=== PATIENT | male | born 1930 | race Caucasian/White ===

== ENCOUNTER → 2016-07-27 | Outpatient (REF) ==
[~2016-07-27] MED LIST: B-121KIT INJ; BRIL90TA PO; COUM1TAB17 PO; DIGO0.12 PO; FURO40TA2 PO; LISI-542 PO; METO-209 PO; NITR4TASL SL; WARF-23 PO
[2016-07-27 11:43] LABS: INR 1.39
== END ==
PROVIDERS: ATTEND Internal Medicine
DX: I48.91 Unspecified atrial fibrillation (principal)

== ENCOUNTER → 2016-07-30 | Outpatient (REF) ==
[2016-07-30 12:38] LABS: MEAN CORPUSCULAR HEMOGLOBIN 31.5 pg (27.0-33.0); MEAN CORPUSCULAR HGB CONC 32.5 g/dl (32.0-36.5); MEAN CORPUSCULAR VOLUME 96.7 fl (80.0-96.0); RED CELL DISTRIBUTION WIDTH 13.2 % (11.5-14.5)
[2016-07-30 13:12] LABS: CREATININE FOR GFR 1.39 MG/DL (0.70-1.30); GLOMERULAR FILTRATION RATE 51.7 (>35); PERCENT SATURATION 10.2 % (19.7-37.4); POTASSIUM SERUM 4.7 MEQ/L (3.5-5.1)
== END ==
PROVIDERS: ATTEND Internal Medicine
DX: D64.9 Anemia, unspecified (principal); I50.9 Heart failure, unspecified; N18.3 Chronic kidney disease, stage 3 (moderate)

== ENCOUNTER → 2016-07-31 | Outpatient (REF) ==
[2016-07-31 11:03] LABS: INR 2.55
--- NOTE | 2016-07-31 16:13 | REP ---
Clinical: Mitral valve repair. Comparison: 05/23/2016. Findings: Cardiomegaly with a dual lead pacemaker and mitral valve repair is evident. Hazy opacification involving the right mid to lower lung zone may reflect layering effusion. Trace basilar atelectasis cannot be excluded. No pneumothorax. Impression: Cardiomegaly. Possible layering right pleural effusion and basilar atelectasis. Signed by Grant Conley MD 07/31/2016 04:04 P
== END ==
PROVIDERS: ATTEND Internal Medicine
DX: I48.91 Unspecified atrial fibrillation (principal); R05 Cough; Z95.2 Presence of prosthetic heart valve

== ENCOUNTER → 2016-08-01 | Outpatient (REF) ==
[2016-08-01 18:46] LABS: MEAN CORPUSCULAR HEMOGLOBIN 31.5 pg (27.0-33.0); MEAN CORPUSCULAR HGB CONC 31.8 g/dl (32.0-36.5); MEAN CORPUSCULAR VOLUME 99.1 fl (80.0-96.0); RED CELL DISTRIBUTION WIDTH 13.1 % (11.5-14.5); WHITE BLOOD COUNT 18.1 K/mm3 (4.0-10.0)
== END ==
PROVIDERS: ATTEND Internal Medicine
DX: D72.829 Elevated white blood cell count, unspecified (principal)

== ENCOUNTER → 2016-08-02 | Outpatient (REF) | PROVIDERS: ATTEND Internal Medicine | DX: I50.9 Heart failure, unspecified (principal); D72.829 Elevated white blood cell count, unspecified ==

== ENCOUNTER → 2016-08-03 | Outpatient (REF) ==
[2016-08-03 13:29] LABS: MEAN CORPUSCULAR HEMOGLOBIN 30.2 pg (27.0-33.0); MEAN CORPUSCULAR HGB CONC 31.4 g/dl (32.0-36.5); MEAN CORPUSCULAR VOLUME 96.1 fl (80.0-96.0); RED CELL DISTRIBUTION WIDTH 12.9 % (11.5-14.5)
[2016-08-03 13:49] LABS: CALCIUM LEVEL 7.8 MG/DL (8.8-10.2); CREATININE FOR GFR 1.47 MG/DL (0.70-1.30); GLOMERULAR FILTRATION RATE 48.5 (>35); POTASSIUM SERUM 4.7 MEQ/L (3.5-5.1)
== END ==
PROVIDERS: ATTEND Internal Medicine
DX: I48.91 Unspecified atrial fibrillation (principal)

== ENCOUNTER → 2016-08-03 | Outpatient (CLI) | payer MEDICARE, OTHER ==
[~2016-08-03] MED LIST changes: +ISOVUE-370 76% 100ML VIAL (Q9967) As Ordered ONE
--- NOTE | 2016-08-03 14:59 | REP ---
CT of the chest with IV contrast: Comparison is a plain film PA and lateral chest dated 07/31/2016. There is a moderate right pleural effusion with compression atelectasis of the adjacent lung. A small volume of pleural fluid tracks into the of the right major fissure superiorly.. There is a nodular density in the right upper lobe measuring 14 mm on image 69 tracking inferiorly to image 74. This may represent lung nodule, atelectasis or scarring. There are no comparison chest CTs. There is a small left pleural effusion. The left lung is otherwise unremarkable. There is a pericardial effusion measuring up to 2.5 cm depth along the posterolateral margin of the heart on the left on image 76. Cardiac size is enlarged. Pacemaker and cardiac valve replacement are noted. The thoracic aorta is unremarkable. In the upper abdomen, the visualized portions of the liver, pancreas and spleen are unremarkable. The adrenals are unremarkable. There is a cyst in the upper pole left kidney. Impression: Moderate right pleural effusion, small left pleural effusion. Pericardial effusion. Cardiac valve replacement. There is compression atelectasis of the right lung adjacent to the effusion. A small volume of right pleural fluid has insinuated into the right major fissure superiorly. There is a right upper lobe lung nodule versus scarring versus atelectasis. Signed by Onur Cui MD 08/03/2016 02:50 P
== END ==
LOC: M RAD 13:30
PROVIDERS: ATTEND Physician Assistant
DX: R91.8 Other nonspecific abnormal finding of lung field (principal); J90 Pleural effusion, not elsewhere classified; I31.3 Pericardial effusion (noninflammatory); Z95.5 Presence of coronary angioplasty implant and graft; Z95.0 Presence of cardiac pacemaker
CPT/HCPCS: 71260; Q9967

== ENCOUNTER → 2016-08-06 | Outpatient (REF) ==
[~2016-08-06] MED LIST changes: -ISOVUE-370 76% 100ML VIAL (Q9967) As Ordered ONE
[2016-08-06 09:54] LABS: MEAN CORPUSCULAR HEMOGLOBIN 30.4 pg (27.0-33.0); MEAN CORPUSCULAR HGB CONC 31.5 g/dl (32.0-36.5); MEAN CORPUSCULAR VOLUME 96.6 fl (80.0-96.0); RED CELL DISTRIBUTION WIDTH 13.2 % (11.5-14.5); WHITE BLOOD COUNT 15.2 K/mm3 (4.0-10.0)
[2016-08-06 10:02] LABS: INR 2.45
[2016-08-06 10:13] LABS: CALCIUM LEVEL 8.8 MG/DL (8.8-10.2); CREATININE FOR GFR 1.36 MG/DL (0.70-1.30); POTASSIUM SERUM 4.8 MEQ/L (3.5-5.1)
== END ==
PROVIDERS: ATTEND Internal Medicine
DX: I48.91 Unspecified atrial fibrillation (principal); N18.3 Chronic kidney disease, stage 3 (moderate); J90 Pleural effusion, not elsewhere classified

== ENCOUNTER → 2016-08-07 | Outpatient (REF) ==
[2016-08-07 09:13] LABS: MEAN CORPUSCULAR HEMOGLOBIN 30.3 pg (27.0-33.0); MEAN CORPUSCULAR VOLUME 94.5 fl (80.0-96.0); RED CELL DISTRIBUTION WIDTH 13.2 % (11.5-14.5); WHITE BLOOD COUNT 15.8 K/mm3 (4.0-10.0)
[2016-08-07 09:17] LABS: CALCIUM LEVEL 8.4 MG/DL (8.8-10.2); CREATININE FOR GFR 1.44 MG/DL (0.70-1.30); GLOMERULAR FILTRATION RATE 49.6 (>35); POTASSIUM SERUM 4.1 MEQ/L (3.5-5.1)
[2016-08-07 09:26] LABS: INR 1.63
--- NOTE | 2016-08-07 14:42 | REP ---
ULTRASOUND-GUIDED RIGHT THORACENTESIS: The procedure was performed under the direct supervision of Dr. Lamas. The risks and benefits of the procedure were explained to the patient, and informed consent was obtained. The right pleural effusion was localized using ultrasound guidance. The skin was prepped and draped in a sterile fashion. 1% lidocaine was used as a local anesthetic. A #8-Colombian multi-sidehole catheter was inserted using trocar technique. 430 mL of low-viscosity, red-colored fluid was withdrawn and sent to the lab. The patient tolerated the procedure well, and there were no immediate complications. After the appropriate amount of monitored convalescence, the patient was discharged from the department. Reviewed by ANDIE Schultz 08/07/2016 04:34 PEdited and Signed by Quique Lamas MD 08/07/2016 05:26 P
--- NOTE | 2016-08-07 15:09 | REP ---
PA AND LATERAL CHEST: 08/07/2016 12:53 PM. Clinical history: Status post right thoracentesis. Comparison: 07/31/2016 chest x-ray, CT chest 08/03/2016. The patient had removal of 430 mL of reddish low viscosity fluid according to the procedure note for the right thoracentesis. I do not see any compelling evidence for pneumothorax. There is trace pleural effusions on both sides. There is cardiomegaly with left atrial and ventricular enlargement. This is unchanged. Some linear atelectatic changes in the right mid and lower lung zone. Hilar contours were symmetric and unchanged. The aorta is calcified at the arch, mildly tortuous without aneurysm. Airway intact. There is a dual lead pacer with leads over the right atrium and right ventricle, unchanged. No compression deformity in the spine with marginal osteophytes mid and lower thoracic region and no disc space narrowing or destructive changes. No free air. Impression: 1. Status post right thoracentesis with less pleural effusion with only small residual remaining and with some residual linear atelectatic change mid and lower lung zone on the right. 2. No evidence of pneumothorax or pneumomediastinum. 3. Dual lead pacer, cardiomegaly with left atrial and ventricular enlargement and a cardiac valve replacement noted. No other significant or acute finding. Signed by Quique Lamas MD 08/07/2016 05:46 P
[2016-08-07 15:13] LABS: RBC PLEURAL FLUID 94 (<10mm3 cells/uL); TNC PLEURAL FLUID 1813 cells/uL (0-20)
[2016-08-07 15:23] LABS: BF DIFF IF INDICATED? YES (NO)
[2016-08-07 15:27] LABS: CC BF DIFF EXAM CYTOCENTRIFUGE
== END ==
PROVIDERS: ATTEND Internal Medicine
DX: N18.3 Chronic kidney disease, stage 3 (moderate) (principal)

== ENCOUNTER → 2016-08-09 | Outpatient (REF) ==
[2016-08-09 14:21] LABS: MEAN CORPUSCULAR HEMOGLOBIN 30.5 pg (27.0-33.0); MEAN CORPUSCULAR HGB CONC 31.6 g/dl (32.0-36.5); MEAN CORPUSCULAR VOLUME 96.3 fl (80.0-96.0); RED CELL DISTRIBUTION WIDTH 13.2 % (11.5-14.5); WHITE BLOOD COUNT 13.7 K/mm3 (4.0-10.0)
[2016-08-09 14:29] LABS: CALCIUM LEVEL 8.3 MG/DL (8.8-10.2); CREATININE FOR GFR 1.51 MG/DL (0.70-1.30); POTASSIUM SERUM 4.5 MEQ/L (3.5-5.1)
== END ==
PROVIDERS: ATTEND Internal Medicine
DX: A49.9 Bacterial infection, unspecified (principal)

== ENCOUNTER → 2016-08-10 | Outpatient (REF) ==
--- NOTE | 2016-08-10 15:54 | REP ---
Clinical: History of right pleural effusion with shortness of breath. Comparison: 08/07/2016. Findings: Stable cardiomegaly is appreciated. Lung keenan demonstrate chronic changes and small stable left pleural effusion. Superimposed right lower lobe infiltrate cannot be excluded. No pneumothorax. Skeletal structures stable. Impression: Chronic changes with small left pleural effusion similar to prior examination. Superimposed acute right lower lobe infiltrate cannot be excluded. Signed by Grant Conley MD 08/10/2016 03:47 P
== END ==
PROVIDERS: ATTEND Internal Medicine
DX: R06.02 Shortness of breath (principal); J90 Pleural effusion, not elsewhere classified

== ENCOUNTER → 2016-08-13 | Outpatient (REF) ==
[2016-08-13 09:52] LABS: MEAN CORPUSCULAR HEMOGLOBIN 30.4 pg (27.0-33.0); MEAN CORPUSCULAR HGB CONC 32.5 g/dl (32.0-36.5); MEAN CORPUSCULAR VOLUME 93.6 fl (80.0-96.0); RED CELL DISTRIBUTION WIDTH 13.2 % (11.5-14.5); WHITE BLOOD COUNT 14.2 K/mm3 (4.0-10.0)
[2016-08-13 09:58] LABS: INR 2.72
[2016-08-13 10:10] LABS: CREATININE FOR GFR 1.41 MG/DL (0.70-1.30); GLOMERULAR FILTRATION RATE 50.9 (>35); POTASSIUM SERUM 3.7 MEQ/L (3.5-5.1)
== END ==
PROVIDERS: ATTEND Internal Medicine
DX: I50.9 Heart failure, unspecified (principal)

== ENCOUNTER → 2016-08-20 | Outpatient (REF) ==
[2016-08-20 10:37] LABS: INR 2.08
== END ==
PROVIDERS: ATTEND Internal Medicine
DX: I48.91 Unspecified atrial fibrillation (principal)

== ENCOUNTER → 2016-08-24 | Outpatient (REF) ==
[2016-08-24 10:11] LABS: INR 1.74
== END ==
PROVIDERS: ATTEND Internal Medicine
DX: I48.91 Unspecified atrial fibrillation (principal)

== ENCOUNTER → 2016-08-28 | Outpatient (REF) ==
[2016-08-28 11:10] LABS: MEAN CORPUSCULAR HEMOGLOBIN 30.6 pg (27.0-33.0); MEAN CORPUSCULAR HGB CONC 32.7 g/dl (32.0-36.5); MEAN CORPUSCULAR VOLUME 93.6 fl (80.0-96.0); RED CELL DISTRIBUTION WIDTH 13.6 % (11.5-14.5)
[2016-08-28 11:21] LABS: PERCENT SATURATION 14.2 % (19.7-37.4)
== END ==
PROVIDERS: ATTEND Internal Medicine
DX: D64.9 Anemia, unspecified (principal)

== ENCOUNTER → 2016-08-31 | Outpatient (REF) ==
[2016-08-31 10:57] LABS: INR 1.69
== END ==
PROVIDERS: ATTEND Internal Medicine
DX: I48.91 Unspecified atrial fibrillation (principal)

== ENCOUNTER → 2016-09-03 | Outpatient (REF) ==
[2016-09-03 12:09] LABS: INR 1.8
== END ==
PROVIDERS: ATTEND Internal Medicine
DX: I48.91 Unspecified atrial fibrillation (principal)

== ENCOUNTER → 2016-09-19 | Outpatient (CLI) | payer MEDICARE, OTHER ==
--- NOTE | 2016-09-19 14:53 | REP ---
CHEST, TWO VIEWS: HISTORY: Heart failure. COMPARISON: 08/10/2016. Patchy density is present in the right lower lobe consistent with atelectasis or infiltrate that is decreased compared to the previous study. Linear densities are present in the right middle lung consistent with atelectasis or scar. The left lung is clear. A small right pleural effusion is present. The cardiac silhouette is enlarged. The pulmonary vasculature is normal in appearance. Degenerative change is present in the thoracic spine. A prosthetic heart valve and cardiac pacemaker are present. IMPRESSION: 1. Right lower lobe atelectasis or infiltrate decreased compared to the previous study. 2. Right mid-lung atelectasis or scar. 3. Small right pleural effusion. 4. Cardiomegaly. Signed by Jason Gomez MD 09/19/2016 03:06 P
== END ==
LOC: M WUC 13:56
PROVIDERS: ATTEND Nurse Practitioner Adult Health
DX: I50.33 Acute on chronic diastolic (congestive) heart failure (principal); R91.8 Other nonspecific abnormal finding of lung field; J90 Pleural effusion, not elsewhere classified; I51.7 Cardiomegaly

== ENCOUNTER → 2016-12-14 | Outpatient (RCR) | payer MEDICARE, OTHER ==
[~2016-12-14] MED LIST changes: +CYAN1000VL; +DOK100TA; +FURO20TA2; -METO-209 PO; +METO-346; +METO1TAB33 PO; +SIMV10TA2; +SPIR25TA2
== END ==
LOC: M CR 11-26 08:25
PROVIDERS: ATTEND Internal Medicine Cardiovascular Disease
DX: Z51.89 Encounter for other specified aftercare (principal); Z95.2 Presence of prosthetic heart valve

== ENCOUNTER 2016-12-21 08:18 | Emergency (ER) | payer MEDICARE, OTHER ==
[~2016-12-21] VITALS: Ht 177.8 cm; Wt 87.9 kg
[~2016-12-21 08:18] MED LIST changes: -CYAN1000VL; -DOK100TA; -FURO20TA2; -METO-346; -SIMV10TA2; -SPIR25TA2
[2016-12-21] MEDS ORDERED: SPIR25TA2 (08:43)
[2016-12-21] MEDS ORDERED: SIMV10TA2 (08:43)
[2016-12-21] MEDS ORDERED: DOK100TA (08:43)
[2016-12-21] MEDS ORDERED: METO-346 (08:43)
[2016-12-21] MEDS ORDERED: FURO20TA2 (08:43)
[2016-12-21] MEDS ORDERED: CYAN1000VL (08:43)
[2016-12-21] MEDS ORDERED: ASPIRIN 81 MG CHEW TABLET PO ONE (08:45)
[2016-12-21 08:53] LABS: BASO % 0.2 % (0.0-1.0); EOS % 3.6 % (0.0-3.0); LARGE UNSTAINED CELL % 3.4 % (0.0-4.0); LYMPH % 17.2 % (24.0-44.0); MEAN CORPUSCULAR HGB CONC 32.7 g/dl (32.0-36.5); MEAN CORPUSCULAR VOLUME 91.8 fl (80.0-96.0); MONO % 6.3 % (0.0-5.0); NEUTROPHILS % 69.3 % (36.0-66.0); PLATELET COUNT, AUTOMATED 290 k/mm3 (150-450); RED CELL DISTRIBUTION WIDTH 14.2 % (11.5-14.5); WHITE BLOOD COUNT 7.2 K/mm3 (4.0-10.0)
[2016-12-21 09:01] LABS: INR 1.82
--- NOTE | 2016-12-21 09:04 | REP ---
Clinical: Chest pain. Technique: Portable semiupright. Comparison: 09/19/2016. Findings: Mediastinum and cardiac silhouette are stable. Evidence for mild cardiomegaly along with pacemaker and valve repair. Lung keenan demonstrate chronic interstitial changes including blunting to the right costophrenic angle. No obvious acute consolidation, effusion, or pneumothorax. Skeletal structures intact. Impression: Chronic stable changes. No acute cardiopulmonary process appreciated. Signed by Grant Conley MD 12/21/2016 08:55 A
[2016-12-21 09:31] LABS: ALBUMIN 3.7 GM/DL (3.2-5.2); ALBUMIN/GLOBULIN RATIO 0.97 (1.00-1.93); ALKALINE PHOSPHATASE 139 U/L (45-117); ALT/SGPT 25 U/L (12-78); ANION GAP 6 MEQ/L (8-16); BILIRUBIN,DIRECT 0.2 MG/DL (0.0-0.2); BILIRUBIN,TOTAL 0.5 MG/DL (0.2-1.0); BLOOD UREA NITROGEN 24 MG/DL (7-18); CALCIUM LEVEL 8.7 MG/DL (8.8-10.2); CARBON DIOXIDE LEVEL 30 MEQ/L (21-32); CHLORIDE LEVEL 105 MEQ/L (98-107); CREATININE FOR GFR 1.31 MG/DL (0.70-1.30); DIGOXIN LEVEL < 0.1 NG/ML (0.5-2.0); GLOMERULAR FILTRATION RATE 55.4 (>35); GLUCOSE, FASTING 88 MG/DL (83-110); POTASSIUM SERUM 3.9 MEQ/L (3.5-5.1); SODIUM LEVEL 141 MEQ/L (136-145); TOTAL PROTEIN 7.5 GM/DL (6.4-8.2)
[2016-12-21 09:34] LABS: AST/SGOT 22 U/L (15-37)
[2016-12-21 11:31] VITALS: BP 142/74
--- NOTE | 2016-12-21 20:55 | ECGEPIP ---
Stationary ECG Study 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
--- NOTE | 2016-12-21 20:58 | ECGEPIP ---
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
== END 2016-12-21 12:58 | disposition home or self-care (01) ==
LOC: M ED 08:18
DX: R07.9 Chest pain, unspecified (principal); G89.18 Other acute postprocedural pain; R94.31 Abnormal electrocardiogram [ECG] [EKG]; I48.91 Unspecified atrial fibrillation; I50.9 Heart failure, unspecified; I25.10 Atherosclerotic heart disease of native coronary artery without angina pectoris; I10 Essential (primary) hypertension; Z95.0 Presence of cardiac pacemaker; Z95.5 Presence of coronary angioplasty implant and graft; Z79.01 Long term (current) use of anticoagulants; Z79.899 Other long term (current) drug therapy; Z88.8 Allergy status to other drugs, medicaments and biological substances

== ENCOUNTER → 2016-12-25 | Outpatient (CLI) | payer MEDICARE, OTHER ==
[~2016-12-25] MED LIST changes: +CYAN1000VL; +DOK100TA; +FURO20TA2; +METO-346; +SIMV10TA2; +SPIR25TA2
--- NOTE | 2016-12-25 15:29 | REP ---
CHEST, TWO VIEWS: HISTORY: Chest pain. COMPARISON: 12/31. A diffuse increase in interstitial markings is present in the lungs consistent with chronic interstitial fibrosis. Patchy density is present in the right lower lobe consistent with atelectasis or infiltrate. The cardiac silhouette is enlarged. The pulmonary vasculature is normal in appearance. Degenerative change is present in the thoracic spine. A cardiac pacemaker is present. IMPRESSION: 1. Chronic interstitial fibrosis. 2. Right lower lobe atelectasis or infiltrate. 3. Cardiomegaly. Signed by Jason Gomez MD 12/25/2016 03:36 P
== END ==
LOC: M WUC 12:53
PROVIDERS: ATTEND Nurse Practitioner Family
DX: R07.9 Chest pain, unspecified (principal)

== ENCOUNTER → 2017-01-14 | Outpatient (RCR) | payer MEDICARE, OTHER | LOC: M CR 12-17 08:41 | PROVIDERS: ATTEND Internal Medicine Cardiovascular Disease | DX: Z51.89 Encounter for other specified aftercare (principal); Z95.2 Presence of prosthetic heart valve ==

== ENCOUNTER 2017-02-13 07:49 | Outpatient (RCR) | payer MEDICARE, OTHER | END 2017-02-14 | LOC: M CR 07:49 | PROVIDERS: ATTEND Internal Medicine Cardiovascular Disease | DX: Z51.89 Encounter for other specified aftercare (principal); Z95.2 Presence of prosthetic heart valve ==

== ENCOUNTER 2017-02-20 13:38 | Outpatient (RCR) | payer MEDICARE, OTHER | END 2017-03-16 | LOC: M CR 13:38 | PROVIDERS: ATTEND Internal Medicine Cardiovascular Disease | DX: Z51.89 Encounter for other specified aftercare (principal); Z95.2 Presence of prosthetic heart valve ==

== ENCOUNTER → 2017-02-22 | Outpatient (REF) | payer MEDICARE, OTHER | LOC: M LAB REF 09:24 | PROVIDERS: ATTEND Physician Assistant | DX: L03.012 Cellulitis of left finger (principal) ==

== ENCOUNTER → 2017-03-23 | Outpatient (REF) | payer MEDICARE, OTHER ==
[2017-03-23 11:59] LABS: INR 2.16
== END ==
LOC: M LABWUC 11:39
PROVIDERS: ATTEND Physician Assistant
DX: R22.41 Localized swelling, mass and lump, right lower limb (principal); Z79.01 Long term (current) use of anticoagulants

== ENCOUNTER 2017-05-27 07:07 | Outpatient (RCR) | payer SELFPAY | END 2017-06-16 | LOC: M CR 07:07 | DX: Z51.89 Encounter for other specified aftercare (principal); I25.10 Atherosclerotic heart disease of native coronary artery without angina pectoris ==

== ENCOUNTER → 2017-06-03 | Outpatient (CLI) | payer MEDICARE, OTHER ==
[2017-06-03 14:05] LABS: BASO % 0.4 % (0.0-1.0); EOS # 0.2 10^3/uL (0.0-0.50); EOS % 2.6 % (0.0-3.0); IMMATURE GRANULOCYTE % 0.3 % (0-0); LYMPH # 1.1 10^3/uL (1.5-4.5); LYMPH % 13.6 % (24.0-44.0); MEAN CORPUSCULAR HEMOGLOBIN 31.1 pg (27.0-33.0); MEAN CORPUSCULAR HGB CONC 31.6 g/dl (32.0-36.5); MEAN CORPUSCULAR VOLUME 98.3 fl (80.0-96.0); MONO # 0.7 10^3/uL (0.0-0.8); MONO % 8.4 % (0.0-5.0); NEUTROPHILS # 5.9 10^3/uL (1.8-7.7); NEUTROPHILS % 74.7 % (36.0-66.0); PLATELET COUNT, AUTOMATED 225 10^3/uL (150-450); RED CELL DISTRIBUTION WIDTH 13.5 % (11.5-14.5)
[2017-06-03 14:26] LABS: ERYTHROCYTE SEDIMENTATION RATE 19 mm/hr (0-30)
== END ==
LOC: M WUC 08:46
PROVIDERS: ATTEND Physician Assistant Surgical
DX: M17.11 Unilateral primary osteoarthritis, right knee (principal); Z79.899 Other long term (current) drug therapy

== ENCOUNTER 2017-08-30 19:09 | Inpatient (IN) | payer MEDICARE, OTHER, SELFPAY ==
[2017-08-30 20:38] LABS: BASO % 0.3 % (0.0-1.0); EOS # 0.2 10^3/uL (0.0-0.50); EOS % 2.2 % (0.0-3.0); HEMATOCRIT 25.5 % (42.0-52.0); HEMOGLOBIN 8.3 g/dl (14.0-18.0); IMMATURE GRANULOCYTE % 0.5 % (0-3.0); LYMPH # 1.1 10^3/uL (1.5-4.5); LYMPH % 14.4 % (24.0-44.0); MEAN CORPUSCULAR HGB CONC 32.5 g/dl (32.0-36.5); MEAN CORPUSCULAR VOLUME 95.1 fl (80.0-96.0); MONO # 0.8 10^3/uL (0.0-0.8); NEUTROPHILS # 5.4 10^3/uL (1.8-7.7); NEUTROPHILS % 71.6 % (36.0-66.0); PLATELET COUNT, AUTOMATED 260 10^3/uL (150-450); RED BLOOD COUNT 2.68 10^6/uL (4.30-6.10); RED CELL DISTRIBUTION WIDTH 14.8 % (11.5-14.5); WHITE BLOOD COUNT 7.6 10^3/uL (4.0-10.0)
[2017-08-30 20:47] LABS: INR 1.18; PROTHROMBIN TIME 15.2 SECONDS (12.4-14.5)
[2017-08-30 20:48] LABS: PARTIAL THROMBOPLASTIN TIME 35.2 SECONDS (26.8-37.9)
[2017-08-30] MEDS: FUROSEMIDE 100 MG/10 ML VIAL (J1940) IV (20:59)
[2017-08-30 21:11] LABS: ANION GAP 9 MEQ/L (8-16); BLOOD UREA NITROGEN 34 MG/DL (7-18); CALCIUM LEVEL 7.9 MG/DL (8.8-10.2); CARBON DIOXIDE LEVEL 24 MEQ/L (21-32); CHLORIDE LEVEL 106 MEQ/L (98-107); CK-MB VALUE MASS 1.8 NG/ML (0.0-3.6); CPK CREATINE PHOSPHOKINASE 51 U/L (39-308); CREATININE FOR GFR 1.53 MG/DL (0.70-1.30); GLOMERULAR FILTRATION RATE 46.2 (>35); GLUCOSE, FASTING 102 MG/DL (70-100); MB/CK RELATIVE INDEX 3.52 (< OR =4); NT-PRO BNP 1931 PG/ML (<450); POTASSIUM SERUM 4.7 MEQ/L (3.5-5.1); SODIUM LEVEL 139 MEQ/L (136-145); TROPONIN I < 0.02 NG/ML (< 0.10)
[2017-08-30 22:22] LABS: ABG BASE EXCESS -2.5 (-2.0-2.0); ABG HCO3 20.5 MEQ/L (22.0-26.0); ABG O2 SATURATION 99.3 % (95.0-99.0); ABG PARTIAL PRESSURE CO2 28.7 mmHg (35.0-45.0); ABG PARTIAL PRESSURE O2 148.7 mmHg (75.0-100.0); ABG STANDARD HCO3 22.4 MEQ/L (22.0-26.0); ABG TOTAL CO2 21.3 MEQ/L (23.0-31.0); ABG pH (ARTERIAL) 7.471 UNITS (7.350-7.450)
[2017-08-30] MEDS ORDERED: ISOVUE-370 76% 100ML VIAL (Q9967) As Ordered (23:26)
[2017-08-31] MEDS ORDERED: NITROGLYCERIN 0.4 MG SUBL TABLET SL (00:15)
[2017-08-31] MEDS ORDERED: IPRATROPIUM 0.5MG/ALBUTEROL 2.5MG INH SOL UD 3ML (DUONEB)(J7620) NEB (00:15)
[2017-08-31] MEDS: IPRATROPIUM 0.5MG/ALBUTEROL 2.5MG INH SOL UD 3ML (DUONEB)(J7620) NEB ×4 (01:15→20:00)
[2017-08-31 01:25] LABS: CK-MB VALUE MASS 1.9 NG/ML (0.0-3.6); CPK CREATINE PHOSPHOKINASE 44 U/L (39-308); MB/CK RELATIVE INDEX 4.31 (< OR =4); TROPONIN I < 0.02 NG/ML (< 0.10)
[2017-08-31] MEDS: CEFTRIAXONE SOD 2 GM in APPROPRIATE DILUENT 1 EA IV (01:47)
[2017-08-31] MEDS: NS 1,000 ML IV (02:03)
[2017-08-31] MEDS: AZITHROMYCIN INJ 500 MG, VIAL MATE ADAPTER 1 EACH in D5W 250 ML IV (02:40)
[2017-08-31 04:07] LABS: INFLUENZA A AMPLIFICATION NEGATIVE (NEGATIVE); INFLUENZA B AMPLIFICATION NEGATIVE (NEGATIVE)
[2017-08-31] MEDS ORDERED: HEPARIN SOD (PORCINE) 5000 UNITS/ML VIAL SC (06:00)
[2017-08-31 06:15] LABS: HEMATOCRIT 23.3 % (42.0-52.0); HEMOGLOBIN 7.7 g/dl (14.0-18.0); MEAN CORPUSCULAR HEMOGLOBIN 30.9 pg (27.0-33.0); MEAN CORPUSCULAR VOLUME 93.6 fl (80.0-96.0); PLATELET COUNT, AUTOMATED 234 10^3/uL (150-450); RED BLOOD COUNT 2.49 10^6/uL (4.30-6.10); RED CELL DISTRIBUTION WIDTH 14.7 % (11.5-14.5); WHITE BLOOD COUNT 7.5 10^3/uL (4.0-10.0)
[2017-08-31 06:44] LABS: ANION GAP 11 MEQ/L (8-16); BLOOD UREA NITROGEN 33 MG/DL (7-18); CALCIUM LEVEL 7.7 MG/DL (8.8-10.2); CARBON DIOXIDE LEVEL 24 MEQ/L (21-32); CHLORIDE LEVEL 106 MEQ/L (98-107); CPK CREATINE PHOSPHOKINASE 38 U/L (39-308); GLOMERULAR FILTRATION RATE 47.2 (>35); GLUCOSE, FASTING 89 MG/DL (70-100); IRON (FE) 14 UG/DL (65-175); PERCENT SATURATION 3.9 % (19.7-50.0); POTASSIUM SERUM 3.6 MEQ/L (3.5-5.1); SODIUM LEVEL 141 MEQ/L (136-145); TOTAL IRON BINDING CAPACITY 360 UG/DL (250-450); TROPONIN I 0.02 NG/ML (< 0.10)
[2017-08-31 06:45] LABS: CK-MB VALUE MASS 1.5 NG/ML (0.0-3.6); MB/CK RELATIVE INDEX 3.94 (< OR =4)
[2017-08-31] MEDS: SUCRALFATE 1 GM TAB PO ×4 (08:28→20:37)
[2017-08-31] MEDS: SIMVASTATIN 10 MG TAB PO (09:38)
[2017-08-31] MEDS: FOLIC ACID 1 MG TAB PO (09:38)
[2017-08-31] MEDS: TICAGRELOR 90 MG TABLET (BRILINTA) PO ×2 (09:38→20:37)
[2017-08-31] MEDS: PANTOPRAZOLE 40MG TAB (PROTONIX) PO (09:39)
[2017-08-31] MEDS: HEPARIN SOD (PORCINE) 5000 UNITS/ML VIAL SQ ×2 (09:39→20:38)
[2017-08-31] MEDS: METOPROLOL TART 12.5 MG PER 1/2 TAB PO ×2 (09:39→20:37)
[2017-08-31 12:41] LABS: BASO % 0.3 % (0.0-1.0); EOS # 0.1 10^3/uL (0.0-0.50); EOS % 0.8 % (0.0-3.0); HEMATOCRIT 24.9 % (42.0-52.0); IMMATURE GRANULOCYTE % 0.4 % (0-3.0); LYMPH # 0.9 10^3/uL (1.5-4.5); LYMPH % 11.1 % (24.0-44.0); MEAN CORPUSCULAR HEMOGLOBIN 30.7 pg (27.0-33.0); MEAN CORPUSCULAR HGB CONC 32.1 g/dl (32.0-36.5); MEAN CORPUSCULAR VOLUME 95.4 fl (80.0-96.0); MONO # 0.9 10^3/uL (0.0-0.8); MONO % 11.1 % (0.0-5.0); NEUTROPHILS # 5.9 10^3/uL (1.8-7.7); NEUTROPHILS % 76.3 % (36.0-66.0); PLATELET COUNT, AUTOMATED 236 10^3/uL (150-450); RED BLOOD COUNT 2.61 10^6/uL (4.30-6.10); WHITE BLOOD COUNT 7.8 10^3/uL (4.0-10.0)
[2017-08-31] MEDS: PANTOPRAZOLE 20 MG TAB PO (13:50)
[2017-08-31 15:39] LABS: FERRITIN 48 NG/ML (26-388)
[2017-08-31 16:38] LABS: IMMEDIATE SPIN CROSSMATCH 1 2
[2017-08-31] MEDS: FAMOTIDINE 20 MG TAB PO (17:52)
[2017-08-31 21:23] LABS: HEMATOCRIT 25.4 % (42.0-52.0); HEMOGLOBIN 8.2 g/dl (14.0-18.0); MEAN CORPUSCULAR HEMOGLOBIN 29.7 pg (27.0-33.0); MEAN CORPUSCULAR HGB CONC 32.3 g/dl (32.0-36.5); PLATELET COUNT, AUTOMATED 241 10^3/uL (150-450); RED BLOOD COUNT 2.76 10^6/uL (4.30-6.10); RED CELL DISTRIBUTION WIDTH 15.6 % (11.5-14.5); WHITE BLOOD COUNT 7.7 10^3/uL (4.0-10.0)
[2017-09-01] MEDS: CEFTRIAXONE SOD 2 GM in APPROPRIATE DILUENT 1 EA IV (00:21)
[2017-09-01] MEDS: AZITHROMYCIN INJ 500 MG, VIAL MATE ADAPTER 1 EACH in D5W 250 ML IV (01:07)
[2017-09-01] MEDS: IPRATROPIUM 0.5MG/ALBUTEROL 2.5MG INH SOL UD 3ML (DUONEB)(J7620) NEB ×4 (02:00→19:45)
[2017-09-01 04:57] LABS: HEMOGLOBIN 8.8 g/dl (14.0-18.0); MEAN CORPUSCULAR HEMOGLOBIN 30.4 pg (27.0-33.0); MEAN CORPUSCULAR HGB CONC 32.6 g/dl (32.0-36.5); MEAN CORPUSCULAR VOLUME 93.4 fl (80.0-96.0); PLATELET COUNT, AUTOMATED 255 10^3/uL (150-450); RED BLOOD COUNT 2.89 10^6/uL (4.30-6.10); RED CELL DISTRIBUTION WIDTH 15.8 % (11.5-14.5); WHITE BLOOD COUNT 8.4 10^3/uL (4.0-10.0)
[2017-09-01 05:10] LABS: INR 1.26; PROTHROMBIN TIME 16.1 SECONDS (12.4-14.5)
[2017-09-01 05:11] LABS: ANION GAP 9 MEQ/L (8-16); BLOOD UREA NITROGEN 30 MG/DL (7-18); CALCIUM LEVEL 8.1 MG/DL (8.8-10.2); CARBON DIOXIDE LEVEL 25 MEQ/L (21-32); CHLORIDE LEVEL 108 MEQ/L (98-107); CREATININE FOR GFR 1.55 MG/DL (0.70-1.30); GLOMERULAR FILTRATION RATE 45.5 (>35); GLUCOSE, FASTING 92 MG/DL (70-100); POTASSIUM SERUM 3.7 MEQ/L (3.5-5.1); SODIUM LEVEL 142 MEQ/L (136-145)
[2017-09-01] MEDS: HEPARIN SOD (PORCINE) 5000 UNITS/ML VIAL SQ ×2 (08:53→08:59)
[2017-09-01] MEDS: SUCRALFATE 1 GM TAB PO ×5 (08:54→20:43)
[2017-09-01] MEDS: PANTOPRAZOLE 20 MG TAB PO (08:55)
[2017-09-01] MEDS: SIMVASTATIN 10 MG TAB PO (08:55)
[2017-09-01] MEDS: FOLIC ACID 1 MG TAB PO (08:55)
[2017-09-01] MEDS: METOPROLOL TART 12.5 MG PER 1/2 TAB PO ×2 (08:55→20:32)
[2017-09-01] MEDS: TICAGRELOR 90 MG TABLET (BRILINTA) PO ×2 (08:55→20:32)
[2017-09-01 10:14] LABS: MAGNESIUM LEVEL 2.7 MG/DL (1.8-2.4)
[2017-09-01] MEDS: ACETAMINOPHEN TAB 650MG DOSE (2X325MG) PO (14:39)
[2017-09-01] MEDS ORDERED: FUROSEMIDE 100 MG/10 ML VIAL (J1940) IV (15:00)
[2017-09-01] MEDS: FUROSEMIDE 20 MG/2 ML VIAL (J1940) IV (15:27)
[2017-09-01] MEDS: FAMOTIDINE 20 MG TAB PO (17:51)
[2017-09-01] MEDS: FUROSEMIDE 40 MG/4 ML VIAL (J1940) IV (17:51)
[2017-09-01 21:55] LABS: ANION GAP 11 MEQ/L (8-16); BLOOD UREA NITROGEN 30 MG/DL (7-18); CALCIUM LEVEL 7.8 MG/DL (8.8-10.2); CARBON DIOXIDE LEVEL 23 MEQ/L (21-32); CHLORIDE LEVEL 108 MEQ/L (98-107); CREATININE FOR GFR 1.63 MG/DL (0.70-1.30); GLOMERULAR FILTRATION RATE 42.9 (>35); GLUCOSE, FASTING 122 MG/DL (70-100); MAGNESIUM LEVEL 2.4 MG/DL (1.8-2.4); POTASSIUM SERUM 3.4 MEQ/L (3.5-5.1); SODIUM LEVEL 142 MEQ/L (136-145)
[2017-09-02] MEDS: CEFTRIAXONE SOD 2 GM in APPROPRIATE DILUENT 1 EA IV (00:05)
[2017-09-02] MEDS: POTASSIUM CHLORIDE 10 MEQ SR TABLET PO (00:06)
[2017-09-02] MEDS: AZITHROMYCIN INJ 500 MG, VIAL MATE ADAPTER 1 EACH in D5W 250 ML IV (01:06)
[2017-09-02 05:48] LABS: HEMATOCRIT 27.5 % (42.0-52.0); HEMOGLOBIN 8.9 g/dl (14.0-18.0); MEAN CORPUSCULAR HEMOGLOBIN 30.2 pg (27.0-33.0); MEAN CORPUSCULAR HGB CONC 32.4 g/dl (32.0-36.5); MEAN CORPUSCULAR VOLUME 93.2 fl (80.0-96.0); PLATELET COUNT, AUTOMATED 235 10^3/uL (150-450); RED BLOOD COUNT 2.95 10^6/uL (4.30-6.10); RED CELL DISTRIBUTION WIDTH 15.6 % (11.5-14.5); WHITE BLOOD COUNT 7.6 10^3/uL (4.0-10.0)
[2017-09-02 06:02] LABS: INR 1.23; PROTHROMBIN TIME 15.7 SECONDS (12.4-14.5)
[2017-09-02 06:17] LABS: ANION GAP 8 MEQ/L (8-16); BLOOD UREA NITROGEN 28 MG/DL (7-18); CARBON DIOXIDE LEVEL 25 MEQ/L (21-32); CHLORIDE LEVEL 108 MEQ/L (98-107); CREATININE FOR GFR 1.52 MG/DL (0.70-1.30); GLOMERULAR FILTRATION RATE 46.5 (>35); GLUCOSE, FASTING 90 MG/DL (70-100); POTASSIUM SERUM 3.9 MEQ/L (3.5-5.1); SODIUM LEVEL 141 MEQ/L (136-145)
[2017-09-02] MEDS: IPRATROPIUM 0.5MG/ALBUTEROL 2.5MG INH SOL UD 3ML (DUONEB)(J7620) NEB ×3 (07:16→19:59)
[2017-09-02] MEDS: SUCRALFATE 1 GM TAB PO ×4 (08:36→21:42)
[2017-09-02] MEDS: SIMVASTATIN 10 MG TAB PO (08:37)
[2017-09-02] MEDS: METOPROLOL TART 12.5 MG PER 1/2 TAB PO ×2 (08:37→21:42)
[2017-09-02] MEDS: PANTOPRAZOLE 20 MG TAB PO (08:37)
[2017-09-02] MEDS: FOLIC ACID 1 MG TAB PO (08:37)
[2017-09-02] MEDS: TICAGRELOR 90 MG TABLET (BRILINTA) PO ×2 (08:37→21:42)
[2017-09-02 10:06] LABS: ALBUMIN 3.2 GM/DL (3.2-5.2); ALBUMIN/GLOBULIN RATIO 1.14 (1.00-1.93); ALKALINE PHOSPHATASE 126 U/L (45-117); ALT/SGPT 20 U/L (12-78); AST/SGOT 13 U/L (7-37); BILIRUBIN,DIRECT 0.2 MG/DL (0.0-0.2); BILIRUBIN,TOTAL 0.6 MG/DL (0.2-1.0)
[2017-09-02 10:18] LABS: VITAMIN B12 LEVEL 802 PG/ML (247-911)
[2017-09-02 12:11] LABS: HEMATOCRIT 29.6 % (42.0-52.0); HEMOGLOBIN 9.7 g/dl (14.0-18.0)
[2017-09-02 14:54] LABS: MAGNESIUM LEVEL 2.6 MG/DL (1.8-2.4)
[2017-09-02] MEDS: FAMOTIDINE 20 MG TAB PO (17:12)
[2017-09-02] MEDS: LevoFLOXacin 750 MG TABLET PO (17:12)
[2017-09-02 18:25] LABS: HEMATOCRIT 29.8 % (42.0-52.0); HEMOGLOBIN 9.5 g/dl (14.0-18.0)
[2017-09-02] MEDS: PANTOPRAZOLE 40MG INJ (PROTONIX) (C9113) IV (21:42)
[2017-09-03 00:43] LABS: HEMATOCRIT 26.7 % (42.0-52.0); HEMOGLOBIN 8.7 g/dl (14.0-18.0)
[2017-09-03] MEDS: IPRATROPIUM 0.5MG/ALBUTEROL 2.5MG INH SOL UD 3ML (DUONEB)(J7620) NEB ×4 (01:41→19:35)
[2017-09-03 06:09] LABS: HEMATOCRIT 27.2 % (42.0-52.0); HEMOGLOBIN 8.8 g/dl (14.0-18.0); MEAN CORPUSCULAR HEMOGLOBIN 29.9 pg (27.0-33.0); MEAN CORPUSCULAR HGB CONC 32.4 g/dl (32.0-36.5); MEAN CORPUSCULAR VOLUME 92.5 fl (80.0-96.0); PLATELET COUNT, AUTOMATED 229 10^3/uL (150-450); RED BLOOD COUNT 2.94 10^6/uL (4.30-6.10); RED CELL DISTRIBUTION WIDTH 15.4 % (11.5-14.5); WHITE BLOOD COUNT 7.5 10^3/uL (4.0-10.0)
[2017-09-03 06:20] LABS: INR 1.32; PROTHROMBIN TIME 16.7 SECONDS (12.4-14.5)
[2017-09-03 06:32] LABS: ANION GAP 7 MEQ/L (8-16); BLOOD UREA NITROGEN 24 MG/DL (7-18); CALCIUM LEVEL 7.8 MG/DL (8.8-10.2); CARBON DIOXIDE LEVEL 26 MEQ/L (21-32); CHLORIDE LEVEL 110 MEQ/L (98-107); CREATININE FOR GFR 1.53 MG/DL (0.70-1.30); GLOMERULAR FILTRATION RATE 46.2 (>35); GLUCOSE, FASTING 87 MG/DL (70-100); POTASSIUM SERUM 3.8 MEQ/L (3.5-5.1); SODIUM LEVEL 143 MEQ/L (136-145)
[2017-09-03] MEDS: SIMVASTATIN 10 MG TAB PO (08:58)
[2017-09-03] MEDS: SUCRALFATE 1 GM TAB PO ×4 (08:58→20:54)
[2017-09-03] MEDS: METOPROLOL TART 12.5 MG PER 1/2 TAB PO ×2 (08:59→20:53)
[2017-09-03] MEDS: FOLIC ACID 1 MG TAB PO (08:59)
[2017-09-03] MEDS: TICAGRELOR 90 MG TABLET (BRILINTA) PO ×2 (08:59→20:54)
[2017-09-03] MEDS: PANTOPRAZOLE 40MG INJ (PROTONIX) (C9113) IV ×2 (09:00→20:54)
[2017-09-03] MEDS: FAMOTIDINE 20 MG TAB PO (17:07)
[2017-09-04] MEDS: IPRATROPIUM 0.5MG/ALBUTEROL 2.5MG INH SOL UD 3ML (DUONEB)(J7620) NEB ×4 (01:13→20:08)
[2017-09-04] MEDS: LevoFLOXacin 750 MG TABLET PO (06:00)
[2017-09-04 06:20] LABS: HEMATOCRIT 28.9 % (42.0-52.0); HEMOGLOBIN 9.3 g/dl (14.0-18.0); MEAN CORPUSCULAR HEMOGLOBIN 29.8 pg (27.0-33.0); MEAN CORPUSCULAR HGB CONC 32.2 g/dl (32.0-36.5); MEAN CORPUSCULAR VOLUME 92.6 fl (80.0-96.0); PLATELET COUNT, AUTOMATED 233 10^3/uL (150-450); RED BLOOD COUNT 3.12 10^6/uL (4.30-6.10); RED CELL DISTRIBUTION WIDTH 15.7 % (11.5-14.5); WHITE BLOOD COUNT 7.5 10^3/uL (4.0-10.0)
[2017-09-04 06:30] LABS: INR 1.23; PROTHROMBIN TIME 15.7 SECONDS (12.4-14.5)
[2017-09-04 06:31] LABS: ANION GAP 8 MEQ/L (8-16); BLOOD UREA NITROGEN 25 MG/DL (7-18); CALCIUM LEVEL 8.3 MG/DL (8.8-10.2); CARBON DIOXIDE LEVEL 24 MEQ/L (21-32); CHLORIDE LEVEL 111 MEQ/L (98-107); CREATININE FOR GFR 1.48 MG/DL (0.70-1.30); GLUCOSE, FASTING 88 MG/DL (70-100); SODIUM LEVEL 143 MEQ/L (136-145)
[2017-09-04] MEDS: SUCRALFATE 1 GM TAB PO ×4 (08:37→21:40)
[2017-09-04] MEDS: FOLIC ACID 1 MG TAB PO (08:38)
[2017-09-04] MEDS: TICAGRELOR 90 MG TABLET (BRILINTA) PO (08:38)
[2017-09-04] MEDS: PANTOPRAZOLE 40MG INJ (PROTONIX) (C9113) IV ×2 (08:38→21:40)
[2017-09-04] MEDS: SIMVASTATIN 10 MG TAB PO (08:38)
[2017-09-04] MEDS: METOPROLOL TART 12.5 MG PER 1/2 TAB PO ×2 (08:38→21:41)
[2017-09-04] MEDS: FAMOTIDINE 20 MG TAB PO (17:42)
[2017-09-05] MEDS: IPRATROPIUM 0.5MG/ALBUTEROL 2.5MG INH SOL UD 3ML (DUONEB)(J7620) NEB ×4 (02:00→20:00)
[2017-09-05] MEDS: ONDANSETRON 4MG/2ML VIAL (J2405) IV (05:52)
[2017-09-05 06:27] LABS: HEMATOCRIT 31.5 % (42.0-52.0); HEMOGLOBIN 9.9 g/dl (14.0-18.0); MEAN CORPUSCULAR HEMOGLOBIN 29.6 pg (27.0-33.0); MEAN CORPUSCULAR HGB CONC 31.4 g/dl (32.0-36.5); MEAN CORPUSCULAR VOLUME 94.3 fl (80.0-96.0); PLATELET COUNT, AUTOMATED 277 10^3/uL (150-450); RED BLOOD COUNT 3.34 10^6/uL (4.30-6.10); RED CELL DISTRIBUTION WIDTH 15.4 % (11.5-14.5); WHITE BLOOD COUNT 9.8 10^3/uL (4.0-10.0)
[2017-09-05 06:49] LABS: ANION GAP 7 MEQ/L (8-16); BLOOD UREA NITROGEN 23 MG/DL (7-18); CALCIUM LEVEL 8.5 MG/DL (8.8-10.2); CARBON DIOXIDE LEVEL 25 MEQ/L (21-32); CHLORIDE LEVEL 109 MEQ/L (98-107); CREATININE FOR GFR 1.56 MG/DL (0.70-1.30); GLOMERULAR FILTRATION RATE 45.1 (>35); GLUCOSE, FASTING 103 MG/DL (70-100); POTASSIUM SERUM 4.4 MEQ/L (3.5-5.1); SODIUM LEVEL 141 MEQ/L (136-145)
[2017-09-05 06:55] LABS: INR 1.25
[2017-09-05] MEDS: SUCRALFATE 1 GM TAB PO ×4 (07:58→20:12)
[2017-09-05] MEDS: SIMVASTATIN 10 MG TAB PO (07:59)
[2017-09-05] MEDS: PANTOPRAZOLE 40MG INJ (PROTONIX) (C9113) IV ×2 (07:59→20:11)
[2017-09-05] MEDS: FOLIC ACID 1 MG TAB PO (07:59)
[2017-09-05] MEDS: METOPROLOL TART 12.5 MG PER 1/2 TAB PO ×2 (07:59→20:12)
[2017-09-05 12:18] LABS: LACTIC ACID SEPSIS PROTOCOL 1.9 MMOL/L (0.4-2.0)
[2017-09-05] MEDS: LORazepam 0.5 MG TAB PO (17:10)
[2017-09-05] MEDS: FAMOTIDINE 20 MG TAB PO (17:10)
[2017-09-06] MEDS: IPRATROPIUM 0.5MG/ALBUTEROL 2.5MG INH SOL UD 3ML (DUONEB)(J7620) NEB ×4 (02:00→20:16)
[2017-09-06 06:28] LABS: HEMATOCRIT 32.6 % (42.0-52.0); HEMOGLOBIN 10.1 g/dl (14.0-18.0); MEAN CORPUSCULAR HEMOGLOBIN 29.2 pg (27.0-33.0); MEAN CORPUSCULAR VOLUME 94.2 fl (80.0-96.0); PLATELET COUNT, AUTOMATED 255 10^3/uL (150-450); RED BLOOD COUNT 3.46 10^6/uL (4.30-6.10); RED CELL DISTRIBUTION WIDTH 15.5 % (11.5-14.5); WHITE BLOOD COUNT 7.8 10^3/uL (4.0-10.0)
[2017-09-06 06:37] LABS: PROTHROMBIN TIME 15.5 SECONDS (12.4-14.5)
[2017-09-06 06:45] LABS: LACTIC ACID SEPSIS PROTOCOL 1.7 MMOL/L (0.4-2.0)
[2017-09-06 06:55] LABS: ALBUMIN 3.4 GM/DL (3.2-5.2); ALBUMIN/GLOBULIN RATIO 1.03 (1.00-1.93); ALKALINE PHOSPHATASE 146 U/L (45-117); ALT/SGPT 22 U/L (12-78); AMYLASE 42 U/L (25-115); ANION GAP 9 MEQ/L (8-16); AST/SGOT 14 U/L (7-37); BLOOD UREA NITROGEN 22 MG/DL (7-18); CALCIUM LEVEL 8.5 MG/DL (8.8-10.2); CARBON DIOXIDE LEVEL 23 MEQ/L (21-32); CHLORIDE LEVEL 111 MEQ/L (98-107); CREATININE FOR GFR 1.54 MG/DL (0.70-1.30); GLOMERULAR FILTRATION RATE 45.8 (>35); GLUCOSE, FASTING 98 MG/DL (70-100); LIPASE 72 U/L (73-393); POTASSIUM SERUM 4.4 MEQ/L (3.5-5.1); SODIUM LEVEL 143 MEQ/L (136-145); TOTAL PROTEIN 6.7 GM/DL (6.4-8.2)
[2017-09-06] MEDS: SUCRALFATE 1 GM TAB PO ×4 (07:30→20:03)
[2017-09-06] MEDS: METOPROLOL TART 12.5 MG PER 1/2 TAB PO ×2 (09:00→20:04)
[2017-09-06] MEDS: SIMVASTATIN 10 MG TAB PO (09:00)
[2017-09-06] MEDS: FOLIC ACID 1 MG TAB PO (09:00)
[2017-09-06] MEDS: PANTOPRAZOLE 40MG INJ (PROTONIX) (C9113) IV (10:26)
[2017-09-06] MEDS ORDERED: ePHEDrine SULFATE 25 MG/5 ML(5MG/ML) SYRINGE As Ordered (13:09)
[2017-09-06] MEDS ORDERED: PHENYLephrine HCL 500 MCG/5 ML (100MCG/ML) SYRINGE (J2370) As Ordered (13:09)
[2017-09-06] MEDS ORDERED: PROPOFOL 200 MG/20 ML VIAL As Ordered ×2 (13:27)
[2017-09-06] MEDS ORDERED: LIDOCAINE 2% INJ 100 MG/5 ML SDV (FOR ANES.) As Ordered (13:27)
[2017-09-06] MEDS ORDERED: ONDANSETRON 4MG/2ML VIAL (J2405) IV (13:45)
[2017-09-06] MEDS ORDERED: fentaNYL 100 MCG/2 ML INJECTION (J3010) IV (13:45)
[2017-09-06] MEDS: LR 1,000 ML IV (13:45)
[2017-09-06] MEDS: ACETAMINOPHEN TAB 650MG DOSE (2X325MG) PO (15:09)
[2017-09-06] MEDS: FAMOTIDINE 20 MG TAB PO (17:42)
[2017-09-07 00:07] LABS: BODY FLUID CULTURE Not Indicated (.); LEGIONELLA ANTIGEN URINE Negative (Negative); ORGANISM ID Not indicated. (.); SPECIMEN SOURCE Urine (.); URINE STREP PNEUMONIAE ANTIGEN Negative (Negative)
[2017-09-07] MEDS: IPRATROPIUM 0.5MG/ALBUTEROL 2.5MG INH SOL UD 3ML (DUONEB)(J7620) NEB ×4 (02:00→20:00)
[2017-09-07 05:24] LABS: HEMATOCRIT 29.7 % (42.0-52.0); HEMOGLOBIN 9.4 g/dl (14.0-18.0); MEAN CORPUSCULAR HEMOGLOBIN 29.7 pg (27.0-33.0); MEAN CORPUSCULAR HGB CONC 31.6 g/dl (32.0-36.5); MEAN CORPUSCULAR VOLUME 93.7 fl (80.0-96.0); PLATELET COUNT, AUTOMATED 202 10^3/uL (150-450); RED BLOOD COUNT 3.17 10^6/uL (4.30-6.10); RED CELL DISTRIBUTION WIDTH 15.4 % (11.5-14.5); WHITE BLOOD COUNT 6.9 10^3/uL (4.0-10.0)
[2017-09-07 05:33] LABS: INR 1.35; PROTHROMBIN TIME 16.9 SECONDS (12.4-14.5)
[2017-09-07 05:50] LABS: ANION GAP 6 MEQ/L (8-16); BLOOD UREA NITROGEN 28 MG/DL (7-18); CALCIUM LEVEL 8.2 MG/DL (8.8-10.2); CARBON DIOXIDE LEVEL 23 MEQ/L (21-32); CHLORIDE LEVEL 112 MEQ/L (98-107); CREATININE FOR GFR 1.56 MG/DL (0.70-1.30); GLOMERULAR FILTRATION RATE 45.1 (>35); GLUCOSE, FASTING 93 MG/DL (70-100); POTASSIUM SERUM 4.1 MEQ/L (3.5-5.1); SODIUM LEVEL 141 MEQ/L (136-145)
[2017-09-07] MEDS: SUCRALFATE 1 GM TAB PO ×4 (08:01→20:11)
[2017-09-07] MEDS: METOPROLOL TART 12.5 MG PER 1/2 TAB PO ×2 (09:00→20:12)
[2017-09-07] MEDS: SIMVASTATIN 10 MG TAB PO (10:00)
[2017-09-07] MEDS: TICAGRELOR 90 MG TABLET (BRILINTA) PO ×2 (10:00→20:11)
[2017-09-07] MEDS: PANTOPRAZOLE 40MG TAB (PROTONIX) PO (10:00)
[2017-09-07] MEDS: FOLIC ACID 1 MG TAB PO (10:01)
[2017-09-07] MEDS: ACETAMINOPHEN TAB 650MG DOSE (2X325MG) PO (13:41)
[2017-09-07] MEDS: WARFARIN SOD 5 MG TAB PO (17:21)
[2017-09-07] MEDS: FAMOTIDINE 20 MG TAB PO (18:27)
[2017-09-08] MEDS: IPRATROPIUM 0.5MG/ALBUTEROL 2.5MG INH SOL UD 3ML (DUONEB)(J7620) NEB ×4 (02:00→20:28)
[2017-09-08] MEDS: SIMVASTATIN 10 MG TAB PO (07:55)
[2017-09-08] MEDS: PANTOPRAZOLE 40MG TAB (PROTONIX) PO (07:55)
[2017-09-08] MEDS: TICAGRELOR 90 MG TABLET (BRILINTA) PO ×2 (07:55→21:03)
[2017-09-08] MEDS: FOLIC ACID 1 MG TAB PO (07:55)
[2017-09-08] MEDS: SUCRALFATE 1 GM TAB PO ×4 (07:55→21:03)
[2017-09-08] MEDS: METOPROLOL TART 12.5 MG PER 1/2 TAB PO ×2 (07:56→21:00)
[2017-09-08 08:35] LABS: HEMATOCRIT 30.4 % (42.0-52.0); HEMOGLOBIN 9.5 g/dl (14.0-18.0); MEAN CORPUSCULAR HEMOGLOBIN 29.5 pg (27.0-33.0); MEAN CORPUSCULAR HGB CONC 31.3 g/dl (32.0-36.5); MEAN CORPUSCULAR VOLUME 94.4 fl (80.0-96.0); PLATELET COUNT, AUTOMATED 208 10^3/uL (150-450); RED BLOOD COUNT 3.22 10^6/uL (4.30-6.10); RED CELL DISTRIBUTION WIDTH 15.3 % (11.5-14.5); WHITE BLOOD COUNT 7.3 10^3/uL (4.0-10.0)
[2017-09-08 08:43] LABS: INR 1.17; PROTHROMBIN TIME 15.2 SECONDS (12.4-14.5)
[2017-09-08 08:56] LABS: ANION GAP 10 MEQ/L (8-16); BLOOD UREA NITROGEN 25 MG/DL (7-18); CALCIUM LEVEL 8.1 MG/DL (8.8-10.2); CARBON DIOXIDE LEVEL 23 MEQ/L (21-32); CHLORIDE LEVEL 109 MEQ/L (98-107); CREATININE FOR GFR 1.43 MG/DL (0.70-1.30); GLOMERULAR FILTRATION RATE 49.9 (>35); GLUCOSE, FASTING 109 MG/DL (70-100); POTASSIUM SERUM 3.9 MEQ/L (3.5-5.1); SODIUM LEVEL 142 MEQ/L (136-145)
[2017-09-08] MEDS: ACETAMINOPHEN TAB 650MG DOSE (2X325MG) PO (09:48)
[2017-09-08] MEDS: SODIUM CHLORIDE NASAL 0.65% SPRAY BTL (OCEAN) (09:49)
[2017-09-08] MEDS: WARFARIN SOD 5 MG TAB PO (17:05)
[2017-09-08] MEDS: FAMOTIDINE 20 MG TAB PO (17:05)
[2017-09-08] MEDS: WARFARIN SOD 2.5 MG TAB PO (17:05)
[2017-09-09] MEDS: IPRATROPIUM 0.5MG/ALBUTEROL 2.5MG INH SOL UD 3ML (DUONEB)(J7620) NEB ×2 (02:00→08:14)
[2017-09-09] MEDS: SODIUM CHLORIDE NASAL 0.65% SPRAY BTL (OCEAN) (05:58)
[2017-09-09 07:31] LABS: HEMATOCRIT 29.7 % (42.0-52.0); HEMOGLOBIN 9.5 g/dl (14.0-18.0); MEAN CORPUSCULAR HEMOGLOBIN 29.2 pg (27.0-33.0); MEAN CORPUSCULAR VOLUME 91.4 fl (80.0-96.0); PLATELET COUNT, AUTOMATED 206 10^3/uL (150-450); RED BLOOD COUNT 3.25 10^6/uL (4.30-6.10); RED CELL DISTRIBUTION WIDTH 15.2 % (11.5-14.5); WHITE BLOOD COUNT 5.6 10^3/uL (4.0-10.0)
[2017-09-09 07:40] LABS: ANION GAP 6 MEQ/L (8-16); BLOOD UREA NITROGEN 20 MG/DL (7-18); CALCIUM LEVEL 8.3 MG/DL (8.8-10.2); CARBON DIOXIDE LEVEL 23 MEQ/L (21-32); CHLORIDE LEVEL 112 MEQ/L (98-107); CREATININE FOR GFR 1.32 MG/DL (0.70-1.30); GLOMERULAR FILTRATION RATE 54.7 (>35); GLUCOSE, FASTING 87 MG/DL (70-100); INR 1.29; POTASSIUM SERUM 3.8 MEQ/L (3.5-5.1); PROTHROMBIN TIME 16.4 SECONDS (12.4-14.5); SODIUM LEVEL 141 MEQ/L (136-145)
[2017-09-09] MEDS: METOPROLOL TART 12.5 MG PER 1/2 TAB PO (09:00)
[2017-09-09] MEDS: SUCRALFATE 1 GM TAB PO ×2 (09:20→11:17)
[2017-09-09] MEDS: TICAGRELOR 90 MG TABLET (BRILINTA) PO (10:12)
[2017-09-09] MEDS: FOLIC ACID 1 MG TAB PO (10:12)
[2017-09-09] MEDS: SIMVASTATIN 10 MG TAB PO (10:12)
[2017-09-09] MEDS: PANTOPRAZOLE 40MG TAB (PROTONIX) PO (10:12)
[2017-09-09] MEDS ORDERED: WARFARIN SOD 5 MG TAB PO (17:00)
== END 2017-09-09 15:26 | disposition home or self-care (01) | DRG 378 ==
LOC: M ED INP 08-31 00:11 → M MSPAV 09-01 16:17 → M PCU 08-31 02:56 → M ED 19:09
PROC: 30233N1 Transfusion of Nonautologous Red Blood Cells into Peripheral Vein, Percutaneous Approach (ICD-10-PCS; principal; 2017-09-06 13:03)
PROC: 0DB98ZX Excision of Duodenum, Via Natural or Artificial Opening Endoscopic, Diagnostic (ICD-10-PCS; 2017-09-06 13:03)
PROC: 0DB58ZX Excision of Esophagus, Via Natural or Artificial Opening Endoscopic, Diagnostic (ICD-10-PCS; 2017-09-06 13:03)
PROC: 0DB68ZX Excision of Stomach, Via Natural or Artificial Opening Endoscopic, Diagnostic (ICD-10-PCS; 2017-09-06 13:03)
DX: K92.2 Gastrointestinal hemorrhage, unspecified (principal); K56.7 Ileus, unspecified; N17.9 Acute kidney failure, unspecified; N18.3 Chronic kidney disease, stage 3 (moderate); I12.9 Hypertensive chronic kidney disease with stage 1 through stage 4 chronic kidney disease, or unspecified chronic kidney disease; I25.10 Atherosclerotic heart disease of native coronary artery without angina pectoris; I48.91 Unspecified atrial fibrillation; I72.3 Aneurysm of iliac artery; K20.9 Esophagitis, unspecified; Z79.899 Other long term (current) drug therapy; Z88.8 Allergy status to other drugs, medicaments and biological substances; Z95.0 Presence of cardiac pacemaker; F17.200 Nicotine dependence, unspecified, uncomplicated; I34.0 Nonrheumatic mitral (valve) insufficiency

== ENCOUNTER 2017-09-11 12:17 | Inpatient (IN) | payer MEDICARE, OTHER ==
[2017-09-11 13:53] LABS: BASO % 0.3 % (0.0-1.0); EOS # 0.2 10^3/uL (0.0-0.50); EOS % 2.7 % (0.0-3.0); HEMATOCRIT 30.5 % (42.0-52.0); HEMOGLOBIN 9.5 g/dl (14.0-18.0); IMMATURE GRANULOCYTE % 0.5 % (0-3.0); LYMPH # 1.1 10^3/uL (1.5-4.5); LYMPH % 16.3 % (24.0-44.0); MEAN CORPUSCULAR HEMOGLOBIN 29.2 pg (27.0-33.0); MEAN CORPUSCULAR HGB CONC 31.1 g/dl (32.0-36.5); MEAN CORPUSCULAR VOLUME 93.8 fl (80.0-96.0); MONO # 0.7 10^3/uL (0.0-0.8); MONO % 10.6 % (0.0-5.0); NEUTROPHILS # 4.6 10^3/uL (1.8-7.7); NEUTROPHILS % 69.6 % (36.0-66.0); PLATELET COUNT, AUTOMATED 209 10^3/uL (150-450); RED BLOOD COUNT 3.25 10^6/uL (4.30-6.10); RED CELL DISTRIBUTION WIDTH 15.2 % (11.5-14.5); WHITE BLOOD COUNT 6.6 10^3/uL (4.0-10.0)
[2017-09-11 13:57] LABS: INR 1.61; PROTHROMBIN TIME 19.6 SECONDS (12.4-14.5)
[2017-09-11 14:16] LABS: ALBUMIN 3.3 GM/DL (3.2-5.2); ALBUMIN/GLOBULIN RATIO 1.18 (1.00-1.93); ALKALINE PHOSPHATASE 191 U/L (45-117); ALT/SGPT 25 U/L (12-78); ANION GAP 4 MEQ/L (8-16); AST/SGOT 25 U/L (7-37); BILIRUBIN,DIRECT 0.2 MG/DL (0.0-0.2); BILIRUBIN,TOTAL 0.4 MG/DL (0.2-1.0); BLOOD UREA NITROGEN 20 MG/DL (7-18); CARBON DIOXIDE LEVEL 24 MEQ/L (21-32); CHLORIDE LEVEL 112 MEQ/L (98-107); CREATININE FOR GFR 1.43 MG/DL (0.70-1.30); GLOMERULAR FILTRATION RATE 49.9 (>35); GLUCOSE, FASTING 101 MG/DL (70-100); NT-PRO BNP 3016 PG/ML (<450); POTASSIUM SERUM 4.2 MEQ/L (3.5-5.1); SODIUM LEVEL 140 MEQ/L (136-145); TOTAL PROTEIN 6.1 GM/DL (6.4-8.2)
[2017-09-11 14:17] LABS: CPK CREATINE PHOSPHOKINASE 84 U/L (39-308); TROPONIN I 0.02 NG/ML (< 0.10)
[2017-09-11 14:18] LABS: MB/CK RELATIVE INDEX 3.57 (< OR =4)
[2017-09-11] MEDS: FUROSEMIDE 100 MG/10 ML VIAL (J1940) IV (14:40)
[2017-09-11] MEDS ORDERED: ONDANSETRON 4MG/2ML VIAL (J2405) IV (15:15)
[2017-09-11] MEDS: FUROSEMIDE 40 MG/4 ML VIAL (J1940) IV (18:00)
[2017-09-11 20:17] LABS: CPK CREATINE PHOSPHOKINASE 55 U/L (39-308); TROPONIN I 0.03 NG/ML (< 0.10)
[2017-09-11 20:18] LABS: CK-MB VALUE MASS 2.8 NG/ML (<3.6); MB/CK RELATIVE INDEX 5.09 (< OR =4)
[2017-09-11] MEDS: SENOKOT S TAB PO (21:00)
[2017-09-11] MEDS: DOCUSATE SODIUM 100 MG CAP PO (21:00)
[2017-09-11] MEDS: WARFARIN SOD 5 MG TAB PO (21:20)
[2017-09-11] MEDS: SUCRALFATE 1 GM TAB PO (21:20)
[2017-09-11] MEDS: TICAGRELOR 90 MG TABLET (BRILINTA) PO (21:20)
[2017-09-11] MEDS: METOPROLOL TART 12.5 MG PER 1/2 TAB PO (21:21)
[2017-09-11] MEDS: SIMVASTATIN 10 MG TAB PO (21:21)
[2017-09-11] MEDS: FAMOTIDINE 20 MG TAB PO (21:21)
[2017-09-11] MEDS ORDERED: SLF 3 ML SYR IV (21:30)
[2017-09-12] MEDS: FUROSEMIDE 40 MG/4 ML VIAL (J1940) IV ×4 (00:02→17:54)
[2017-09-12] MEDS: SLF 3 ML SYR IV ×4 (00:03→21:59)
[2017-09-12 03:00] LABS: ANION GAP 8 MEQ/L (8-16); BLOOD UREA NITROGEN 20 MG/DL (7-18); CARBON DIOXIDE LEVEL 25 MEQ/L (21-32); CHLORIDE LEVEL 112 MEQ/L (98-107); CREATININE FOR GFR 1.34 MG/DL (0.70-1.30); GLOMERULAR FILTRATION RATE 53.8 (>35); GLUCOSE, FASTING 85 MG/DL (70-100); POTASSIUM SERUM 3.6 MEQ/L (3.5-5.1); SODIUM LEVEL 145 MEQ/L (136-145)
[2017-09-12] MEDS: POTASSIUM CHLORIDE 10 MEQ SR TABLET PO (04:14)
[2017-09-12] MEDS: MAGNESIUM OXIDE 400 MG TAB (MAG-OX) PO (05:10)
[2017-09-12 05:38] LABS: HEMATOCRIT 30.6 % (42.0-52.0); HEMOGLOBIN 9.9 g/dl (14.0-18.0); MEAN CORPUSCULAR HEMOGLOBIN 29.7 pg (27.0-33.0); MEAN CORPUSCULAR HGB CONC 32.4 g/dl (32.0-36.5); MEAN CORPUSCULAR VOLUME 91.9 fl (80.0-96.0); PLATELET COUNT, AUTOMATED 222 10^3/uL (150-450); RED BLOOD COUNT 3.33 10^6/uL (4.30-6.10); RED CELL DISTRIBUTION WIDTH 15.1 % (11.5-14.5); WHITE BLOOD COUNT 6.3 10^3/uL (4.0-10.0)
[2017-09-12 05:50] LABS: INR 1.64; PROTHROMBIN TIME 19.9 SECONDS (12.4-14.5)
[2017-09-12 05:51] LABS: ANION GAP 6 MEQ/L (8-16); BLOOD UREA NITROGEN 19 MG/DL (7-18); CALCIUM LEVEL 8.2 MG/DL (8.8-10.2); CARBON DIOXIDE LEVEL 27 MEQ/L (21-32); CHLORIDE LEVEL 110 MEQ/L (98-107); CREATININE FOR GFR 1.42 MG/DL (0.70-1.30); GLOMERULAR FILTRATION RATE 50.3 (>35); GLUCOSE, FASTING 83 MG/DL (70-100); POTASSIUM SERUM 3.7 MEQ/L (3.5-5.1); SODIUM LEVEL 143 MEQ/L (136-145)
[2017-09-12] MEDS: SPIRONOLACTONE 12.5MG PER 1/2 TABLET PO (08:34)
[2017-09-12] MEDS: PANTOPRAZOLE 40MG TAB (PROTONIX) PO (08:34)
[2017-09-12] MEDS: DOCUSATE SODIUM 100 MG CAP PO ×2 (08:34→21:00)
[2017-09-12] MEDS: FOLIC ACID 1 MG TAB PO (08:35)
[2017-09-12] MEDS: SENOKOT S TAB PO ×2 (08:35→21:00)
[2017-09-12] MEDS: METOPROLOL TART 12.5 MG PER 1/2 TAB PO ×2 (08:36→21:58)
[2017-09-12] MEDS: SUCRALFATE 1 GM TAB PO ×4 (09:02→21:58)
[2017-09-12] MEDS: TICAGRELOR 90 MG TABLET (BRILINTA) PO ×2 (09:15→21:58)
[2017-09-12] MEDS: ACETAMINOPHEN TAB 650MG DOSE (2X325MG) PO (11:21)
[2017-09-12] MEDS: WARFARIN SOD 5 MG TAB PO ×2 (17:38)
[2017-09-12] MEDS: SIMVASTATIN 10 MG TAB PO (21:58)
[2017-09-12] MEDS: FAMOTIDINE 20 MG TAB PO (21:58)
[2017-09-12] MEDS: HEPARIN SOD (PORCINE) 5000 UNITS/ML VIAL SQ (21:58)
[2017-09-13] MEDS: FUROSEMIDE 40 MG/4 ML VIAL (J1940) IV ×6 (00:54→23:35)
[2017-09-13] MEDS: SLF 3 ML SYR IV ×3 (05:22→22:00)
[2017-09-13 05:33] LABS: HEMATOCRIT 32.6 % (42.0-52.0); HEMOGLOBIN 9.5 g/dl (13.5-17.5); MEAN CORPUSCULAR HEMOGLOBIN 28.4 pg (27.0-33.0); MEAN CORPUSCULAR HGB CONC 29.1 g/dl (32.0-36.5); MEAN CORPUSCULAR VOLUME 97.6 fl (80.0-96.0); PLATELET COUNT, AUTOMATED 234 10^3/uL (150-450); RED BLOOD COUNT 3.34 10^6/uL (4.30-6.10); RED CELL DISTRIBUTION WIDTH 15.4 % (11.5-14.5); WHITE BLOOD COUNT 5.3 10^3/uL (4.0-10.0)
[2017-09-13 05:43] LABS: INR 1.96
[2017-09-13 05:52] LABS: ANION GAP 7 MEQ/L (8-16); BLOOD UREA NITROGEN 22 MG/DL (7-18); CARBON DIOXIDE LEVEL 25 MEQ/L (21-32); CHLORIDE LEVEL 111 MEQ/L (98-107); CREATININE FOR GFR 1.51 MG/DL (0.70-1.30); GLOMERULAR FILTRATION RATE 46.9 (>35); GLUCOSE, FASTING 82 MG/DL (70-100); POTASSIUM SERUM 3.7 MEQ/L (3.5-5.1); SODIUM LEVEL 143 MEQ/L (136-145)
[2017-09-13] MEDS: SUCRALFATE 1 GM TAB PO ×4 (07:30→22:42)
[2017-09-13] MEDS: SENOKOT S TAB PO ×2 (08:36→22:42)
[2017-09-13] MEDS: PANTOPRAZOLE 40MG TAB (PROTONIX) PO (08:36)
[2017-09-13] MEDS: DOCUSATE SODIUM 100 MG CAP PO ×2 (08:37→22:42)
[2017-09-13] MEDS: TICAGRELOR 90 MG TABLET (BRILINTA) PO ×2 (08:37→22:42)
[2017-09-13] MEDS: FOLIC ACID 1 MG TAB PO (08:37)
[2017-09-13] MEDS: SPIRONOLACTONE 12.5MG PER 1/2 TABLET PO (08:37)
[2017-09-13] MEDS: HEPARIN SOD (PORCINE) 5000 UNITS/ML VIAL SQ ×4 (08:41→22:42)
[2017-09-13] MEDS: METOPROLOL TART 12.5 MG PER 1/2 TAB PO ×2 (08:41→21:00)
[2017-09-13] MEDS: WARFARIN SOD 5 MG TAB PO (16:15)
[2017-09-13] MEDS: FAMOTIDINE 20 MG TAB PO (22:42)
[2017-09-13] MEDS: SIMVASTATIN 10 MG TAB PO (22:42)
[2017-09-14 03:51] LABS: HEMATOCRIT 30.9 % (42.0-52.0); HEMOGLOBIN 9.7 g/dl (13.5-17.5); MEAN CORPUSCULAR HEMOGLOBIN 28.5 pg (27.0-33.0); MEAN CORPUSCULAR HGB CONC 31.4 g/dl (32.0-36.5); MEAN CORPUSCULAR VOLUME 90.9 fl (80.0-96.0); PLATELET COUNT, AUTOMATED 232 10^3/uL (150-450); WHITE BLOOD COUNT 5.2 10^3/uL (4.0-10.0)
[2017-09-14 04:00] LABS: INR 2.36; PROTHROMBIN TIME 26.7 SECONDS (12.4-14.5)
[2017-09-14 04:03] LABS: ANION GAP 7 MEQ/L (8-16); BLOOD UREA NITROGEN 26 MG/DL (7-18); CALCIUM LEVEL 7.7 MG/DL (8.8-10.2); CARBON DIOXIDE LEVEL 27 MEQ/L (21-32); CHLORIDE LEVEL 109 MEQ/L (98-107); CREATININE FOR GFR 1.56 MG/DL (0.70-1.30); GLOMERULAR FILTRATION RATE 45.1 (>35); GLUCOSE, FASTING 88 MG/DL (70-100); MAGNESIUM LEVEL 2.1 MG/DL (1.8-2.4); POTASSIUM SERUM 3.5 MEQ/L (3.5-5.1); SODIUM LEVEL 143 MEQ/L (136-145)
[2017-09-14] MEDS: SLF 3 ML SYR IV ×3 (05:43→21:08)
[2017-09-14] MEDS: FUROSEMIDE 40 MG/4 ML VIAL (J1940) IV (05:43)
[2017-09-14] MEDS: SUCRALFATE 1 GM TAB PO ×4 (05:44→21:08)
[2017-09-14] MEDS: METOPROLOL TART 12.5 MG PER 1/2 TAB PO ×2 (09:00→20:57)
[2017-09-14] MEDS: SPIRONOLACTONE 12.5MG PER 1/2 TABLET PO (09:20)
[2017-09-14] MEDS: SENOKOT S TAB PO ×2 (09:22→21:07)
[2017-09-14] MEDS: PANTOPRAZOLE 40MG TAB (PROTONIX) PO (09:22)
[2017-09-14] MEDS: TICAGRELOR 90 MG TABLET (BRILINTA) PO ×2 (09:22→21:07)
[2017-09-14] MEDS: DOCUSATE SODIUM 100 MG CAP PO ×2 (09:22→21:07)
[2017-09-14] MEDS: FOLIC ACID 1 MG TAB PO (09:22)
[2017-09-14] MEDS: FUROSEMIDE 40 MG TAB PO ×2 (09:25→16:52)
[2017-09-14] MEDS: WARFARIN SOD 5 MG TAB PO (16:52)
[2017-09-14] MEDS: FAMOTIDINE 20 MG TAB PO (21:07)
[2017-09-14] MEDS: SIMVASTATIN 10 MG TAB PO (21:07)
[2017-09-15] MEDS: SLF 3 ML SYR IV (05:15)
[2017-09-15 06:00] LABS: HEMATOCRIT 30.3 % (42.0-52.0); HEMOGLOBIN 9.8 g/dl (13.5-17.5); MEAN CORPUSCULAR HEMOGLOBIN 28.7 pg (27.0-33.0); MEAN CORPUSCULAR HGB CONC 32.3 g/dl (32.0-36.5); MEAN CORPUSCULAR VOLUME 88.9 fl (80.0-96.0); PLATELET COUNT, AUTOMATED 271 10^3/uL (150-450); RED BLOOD COUNT 3.41 10^6/uL (4.30-6.10); WHITE BLOOD COUNT 4.7 10^3/uL (4.0-10.0)
[2017-09-15 06:09] LABS: INR 2.58; PROTHROMBIN TIME 28.7 SECONDS (12.4-14.5)
[2017-09-15 06:16] LABS: ANION GAP 7 MEQ/L (8-16); BLOOD UREA NITROGEN 23 MG/DL (7-18); CALCIUM LEVEL 7.7 MG/DL (8.8-10.2); CARBON DIOXIDE LEVEL 26 MEQ/L (21-32); CHLORIDE LEVEL 109 MEQ/L (98-107); CREATININE FOR GFR 1.54 MG/DL (0.70-1.30); GLOMERULAR FILTRATION RATE 45.8 (>35); GLUCOSE, FASTING 88 MG/DL (70-100); POTASSIUM SERUM 3.4 MEQ/L (3.5-5.1); SODIUM LEVEL 142 MEQ/L (136-145)
[2017-09-15] MEDS: FOLIC ACID 1 MG TAB PO (07:33)
[2017-09-15] MEDS: METOPROLOL TART 12.5 MG PER 1/2 TAB PO (07:33)
[2017-09-15] MEDS: PANTOPRAZOLE 40MG TAB (PROTONIX) PO (07:33)
[2017-09-15] MEDS: DOCUSATE SODIUM 100 MG CAP PO (07:33)
[2017-09-15] MEDS: SENOKOT S TAB PO (07:33)
[2017-09-15] MEDS: TICAGRELOR 90 MG TABLET (BRILINTA) PO (07:33)
[2017-09-15] MEDS: SPIRONOLACTONE 12.5MG PER 1/2 TABLET PO (07:33)
[2017-09-15] MEDS: FUROSEMIDE 40 MG TAB PO (07:34)
[2017-09-15] MEDS: SUCRALFATE 1 GM TAB PO ×2 (07:34→11:43)
[2017-09-15] MEDS: POTASSIUM CHLORIDE 10 MEQ SR TABLET PO (10:14)
== END 2017-09-15 12:37 | disposition home or self-care (01) | DRG 293 ==
LOC: M MSPAV 09-14 18:53 → M ED 12:17 → M ED INP 15:01 → M PCU 18:24
DX: I13.0 Hypertensive heart and chronic kidney disease with heart failure and stage 1 through stage 4 chronic kidney disease, or unspecified chronic kidney disease (principal); I50.810 Right heart failure, unspecified; N18.3 Chronic kidney disease, stage 3 (moderate); I72.3 Aneurysm of iliac artery; I48.91 Unspecified atrial fibrillation; I25.10 Atherosclerotic heart disease of native coronary artery without angina pectoris; Z79.01 Long term (current) use of anticoagulants; Z79.899 Other long term (current) drug therapy; Z88.8 Allergy status to other drugs, medicaments and biological substances; Z95.0 Presence of cardiac pacemaker; Z87.891 Personal history of nicotine dependence

== ENCOUNTER → 2017-10-10 | Outpatient (CLI) | payer MEDICARE, OTHER ==
[2017-10-10 12:06] LABS: ANION GAP 7 MEQ/L (8-16); BLOOD UREA NITROGEN 63 MG/DL (7-18); CALCIUM LEVEL 8.9 MG/DL (8.8-10.2); CARBON DIOXIDE LEVEL 31 MEQ/L (21-32); CHLORIDE LEVEL 103 MEQ/L (98-107); CREATININE FOR GFR 1.75 MG/DL (0.70-1.30); GLOMERULAR FILTRATION RATE 39.5 (>35); GLUCOSE, FASTING 90 MG/DL (70-100); SODIUM LEVEL 141 MEQ/L (136-145)
== END ==
LOC: M WUC 08:57
DX: I50.32 Chronic diastolic (congestive) heart failure (principal)
CPT/HCPCS: 80048

== ENCOUNTER 2018-03-07 15:01 | Inpatient (IN) | payer MEDICARE, OTHER ==
[2018-03-07 15:34] LABS: BASO % 0.3 % (0.0-1.0); EOS # 0.2 10^3/uL (0.0-0.50); EOS % 2.3 % (0.0-3.0); IMMATURE GRANULOCYTE % 0.3 % (0-3.0); LYMPH # 1.1 10^3/uL (1.5-4.5); LYMPH % 17.1 % (24.0-44.0); MEAN CORPUSCULAR HEMOGLOBIN 30.9 pg (27.0-33.0); MEAN CORPUSCULAR HGB CONC 30.9 g/dl (32.0-36.5); MONO # 0.7 10^3/uL (0.0-0.8); MONO % 10.5 % (0.0-5.0); NEUTROPHILS # 4.6 10^3/uL (1.8-7.7); NEUTROPHILS % 69.5 % (36.0-66.0); PLATELET COUNT, AUTOMATED 231 10^3/uL (150-450); RED CELL DISTRIBUTION WIDTH 15.5 % (11.5-14.5); WHITE BLOOD COUNT 6.6 10^3/uL (4.0-10.0)
[2018-03-07 15:37] LABS: HEMOGLOBIN 6.8 g/dl (13.5-17.5)
[2018-03-07 15:58] LABS: ANION GAP 10 MEQ/L (8-16); BLOOD UREA NITROGEN 84 MG/DL (7-18); CALCIUM LEVEL 7.6 MG/DL (8.8-10.2); CARBON DIOXIDE LEVEL 25 MEQ/L (21-32); CHLORIDE LEVEL 105 MEQ/L (98-107); CPK CREATINE PHOSPHOKINASE 53 U/L (39-308); CREATININE FOR GFR 2.31 MG/DL (0.70-1.30); GLOMERULAR FILTRATION RATE 28.6 (>35); GLUCOSE, FASTING 80 MG/DL (70-100); MB/CK RELATIVE INDEX 4.34 (< OR =4); POTASSIUM SERUM 4.2 MEQ/L (3.5-5.1); SODIUM LEVEL 140 MEQ/L (136-145); TROPONIN I 0.06 NG/ML (< 0.10)
[2018-03-07] MEDS: NS 1,000 ML IV (17:05)
[2018-03-07] MEDS: diphenhydrAMINE INJ 50MG/ML VIAL (J1200) IV (17:05)
[2018-03-07 17:29] LABS: INR 1.34; PROTHROMBIN TIME 16.8 SECONDS (12.1-14.4)
[2018-03-07] MEDS: PANTOPRAZOLE 40MG INJ (PROTONIX) (C9113) IV (18:24)
[2018-03-07] MEDS ORDERED: ACETAMINOPHEN 650 MG SUPP PR (18:30)
[2018-03-07] MEDS ORDERED: ONDANSETRON 4MG/2ML VIAL (J2405) IV (18:30)
[2018-03-07 20:02] LABS: IMMEDIATE SPIN CROSSMATCH 1 2
[2018-03-07] MEDS: PANTOPRAZOLE SODIUM 40 MG in D5W 50 ML IV ×2 (20:56→23:35)
[2018-03-07] MEDS: SIMVASTATIN 10 MG TAB PO (21:49)
[2018-03-08 00:26] LABS: HEMATOCRIT 24.5 % (42.0-52.0); HEMOGLOBIN 7.8 g/dl (13.5-17.5)
[2018-03-08 01:01] LABS: IMMEDIATE SPIN CROSSMATCH 1 1
[2018-03-08] MEDS: PANTOPRAZOLE SODIUM 40 MG in D5W 50 ML IV ×4 (04:13→21:19)
[2018-03-08 05:32] LABS: HEMATOCRIT 26.3 % (42.0-52.0); HEMOGLOBIN 8.6 g/dl (13.5-17.5); MEAN CORPUSCULAR HEMOGLOBIN 30.7 pg (27.0-33.0); MEAN CORPUSCULAR HGB CONC 32.7 g/dl (32.0-36.5); MEAN CORPUSCULAR VOLUME 93.9 fl (80.0-96.0); PLATELET COUNT, AUTOMATED 194 10^3/uL (150-450); WHITE BLOOD COUNT 6.5 10^3/uL (4.0-10.0)
[2018-03-08 05:57] LABS: ANION GAP 7 MEQ/L (8-16); BLOOD UREA NITROGEN 65 MG/DL (7-18); CALCIUM LEVEL 7.5 MG/DL (8.8-10.2); CARBON DIOXIDE LEVEL 25 MEQ/L (21-32); CHLORIDE LEVEL 111 MEQ/L (98-107); CREATININE FOR GFR 2.01 MG/DL (0.70-1.30); GLOMERULAR FILTRATION RATE 33.6 (>35); GLUCOSE, FASTING 93 MG/DL (70-100); MAGNESIUM LEVEL 2.7 MG/DL (1.8-2.4); POTASSIUM SERUM 4.3 MEQ/L (3.5-5.1); SODIUM LEVEL 143 MEQ/L (136-145)
[2018-03-08] MEDS ORDERED: PROPOFOL 200 MG/20 ML VIAL As Ordered (09:55)
[2018-03-08] MEDS ORDERED: LIDOCAINE 2% INJ 100 MG/5 ML SDV (FOR ANES.) As Ordered (09:55)
[2018-03-08] MEDS: FOLIC ACID 1 MG TAB PO (11:08)
[2018-03-08] MEDS: GOLYTELY SOLN 4000 ML BTL PO (11:08)
[2018-03-08] MEDS: ASPIRIN 81 MG ENTERIC TAB PO (11:08)
[2018-03-08 12:22] LABS: HEMATOCRIT 27.4 % (42.0-52.0); HEMOGLOBIN 8.9 g/dl (13.5-17.5)
[2018-03-08 18:02] LABS: HEMATOCRIT 28.9 % (42.0-52.0); HEMOGLOBIN 9.2 g/dl (13.5-17.5)
[2018-03-08] MEDS: SIMVASTATIN 10 MG TAB PO (21:19)
[2018-03-08] MEDS: IPRATROPIUM 0.5MG/ALBUTEROL 2.5MG INH SOL UD 3ML (DUONEB)(J7620) NEB (21:43)
[2018-03-09 00:42] LABS: HEMATOCRIT 28.4 % (42.0-52.0); HEMOGLOBIN 8.9 g/dl (13.5-17.5)
[2018-03-09] MEDS: PANTOPRAZOLE SODIUM 40 MG in D5W 50 ML IV ×2 (01:00→06:00)
[2018-03-09 06:31] LABS: HEMATOCRIT 26.9 % (42.0-52.0); HEMOGLOBIN 8.7 g/dl (13.5-17.5); MEAN CORPUSCULAR HGB CONC 32.3 g/dl (32.0-36.5); MEAN CORPUSCULAR VOLUME 95.7 fl (80.0-96.0); PLATELET COUNT, AUTOMATED 193 10^3/uL (150-450); RED BLOOD COUNT 2.81 10^6/uL (4.30-6.10); RED CELL DISTRIBUTION WIDTH 16.8 % (11.5-14.5); WHITE BLOOD COUNT 8.7 10^3/uL (4.0-10.0)
[2018-03-09 07:00] LABS: ANION GAP 9 MEQ/L (8-16); BLOOD UREA NITROGEN 39 MG/DL (7-18); CALCIUM LEVEL 7.5 MG/DL (8.8-10.2); CARBON DIOXIDE LEVEL 26 MEQ/L (21-32); CHLORIDE LEVEL 111 MEQ/L (98-107); CREATININE FOR GFR 1.64 MG/DL (0.70-1.30); GLOMERULAR FILTRATION RATE 42.5 (>35); GLUCOSE, FASTING 105 MG/DL (70-100); MAGNESIUM LEVEL 2.6 MG/DL (1.8-2.4); POTASSIUM SERUM 3.9 MEQ/L (3.5-5.1); SODIUM LEVEL 146 MEQ/L (136-145)
[2018-03-09] MEDS ORDERED: PROPOFOL 200 MG/20 ML VIAL As Ordered (08:51)
[2018-03-09] MEDS ORDERED: LIDOCAINE 2% INJ 100 MG/5 ML SDV (FOR ANES.) As Ordered (08:51)
[2018-03-09] MEDS: FOLIC ACID 1 MG TAB PO (10:14)
[2018-03-09] MEDS: PANTOPRAZOLE 40MG TAB (PROTONIX) PO (10:15)
[2018-03-09] MEDS: ASPIRIN 81 MG ENTERIC TAB PO (10:15)
[2018-03-09] MEDS: FERROUS GLUCONATE 324 MG TAB PO (11:05)
[2018-03-09] MEDS: SIMVASTATIN 10 MG TAB PO (20:33)
[2018-03-09] MEDS: FAMOTIDINE 20 MG TAB PO (20:33)
[2018-03-10 06:28] LABS: HEMATOCRIT 26.7 % (42.0-52.0); HEMOGLOBIN 8.4 g/dl (13.5-17.5); MEAN CORPUSCULAR HEMOGLOBIN 30.2 pg (27.0-33.0); MEAN CORPUSCULAR HGB CONC 31.5 g/dl (32.0-36.5); PLATELET COUNT, AUTOMATED 184 10^3/uL (150-450); RED BLOOD COUNT 2.78 10^6/uL (4.30-6.10); RED CELL DISTRIBUTION WIDTH 15.8 % (11.5-14.5)
[2018-03-10 06:48] LABS: ANION GAP 7 MEQ/L (8-16); BLOOD UREA NITROGEN 28 MG/DL (7-18); CALCIUM LEVEL 7.7 MG/DL (8.8-10.2); CARBON DIOXIDE LEVEL 27 MEQ/L (21-32); CHLORIDE LEVEL 108 MEQ/L (98-107); CREATININE FOR GFR 1.54 MG/DL (0.70-1.30); GLOMERULAR FILTRATION RATE 45.7 (>35); GLUCOSE, FASTING 90 MG/DL (70-100); MAGNESIUM LEVEL 2.4 MG/DL (1.8-2.4); SODIUM LEVEL 142 MEQ/L (136-145)
[2018-03-10] MEDS: PANTOPRAZOLE 40MG TAB (PROTONIX) PO (09:08)
[2018-03-10] MEDS: FERROUS GLUCONATE 324 MG TAB PO (09:09)
[2018-03-10] MEDS: ASPIRIN 81 MG ENTERIC TAB PO (09:09)
[2018-03-10] MEDS: FOLIC ACID 1 MG TAB PO (09:09)
[2018-03-10] MEDS: SIMVASTATIN 10 MG TAB PO (20:27)
[2018-03-10] MEDS: FAMOTIDINE 20 MG TAB PO (20:27)
[2018-03-11 05:44] LABS: HEMATOCRIT 26.8 % (42.0-52.0); HEMOGLOBIN 8.5 g/dl (13.5-17.5); MEAN CORPUSCULAR HEMOGLOBIN 30.2 pg (27.0-33.0); MEAN CORPUSCULAR HGB CONC 31.7 g/dl (32.0-36.5); MEAN CORPUSCULAR VOLUME 95.4 fl (80.0-96.0); PLATELET COUNT, AUTOMATED 198 10^3/uL (150-450); RED BLOOD COUNT 2.81 10^6/uL (4.30-6.10); RED CELL DISTRIBUTION WIDTH 15.4 % (11.5-14.5); WHITE BLOOD COUNT 8.8 10^3/uL (4.0-10.0)
[2018-03-11 06:05] LABS: ANION GAP 6 MEQ/L (8-16); BLOOD UREA NITROGEN 28 MG/DL (7-18); CALCIUM LEVEL 7.7 MG/DL (8.8-10.2); CARBON DIOXIDE LEVEL 28 MEQ/L (21-32); CHLORIDE LEVEL 108 MEQ/L (98-107); CREATININE FOR GFR 1.55 MG/DL (0.70-1.30); GLOMERULAR FILTRATION RATE 45.4 (>35); GLUCOSE, FASTING 94 MG/DL (70-100); MAGNESIUM LEVEL 2.5 MG/DL (1.8-2.4); POTASSIUM SERUM 4.1 MEQ/L (3.5-5.1); SODIUM LEVEL 142 MEQ/L (136-145)
[2018-03-11] MEDS ORDERED: SPIRONOLACTONE 25 MG TAB PO (09:00)
[2018-03-11] MEDS: ASPIRIN 81 MG ENTERIC TAB PO (09:17)
[2018-03-11] MEDS: FOLIC ACID 1 MG TAB PO (09:17)
[2018-03-11] MEDS: PANTOPRAZOLE 40MG TAB (PROTONIX) PO (09:17)
[2018-03-11] MEDS: FERROUS GLUCONATE 324 MG TAB PO (09:17)
[2018-03-11] MEDS: SPIRONOLACTONE 25 MG TAB PO (15:05)
[2018-03-11] MEDS: TORSEMIDE 20 MG TAB PO (18:10)
[2018-03-11] MEDS: SIMVASTATIN 10 MG TAB PO (20:41)
[2018-03-11] MEDS: FAMOTIDINE 20 MG TAB PO (20:41)
[2018-03-11] MEDS: IPRATROPIUM 0.5MG/ALBUTEROL 2.5MG INH SOL UD 3ML (DUONEB)(J7620) NEB (21:18)
[2018-03-11] MEDS: ACETAMINOPHEN TAB 650MG DOSE (2X325MG) PO (23:53)
[2018-03-12 06:40] LABS: HEMATOCRIT 25.6 % (42.0-52.0); HEMOGLOBIN 8.2 g/dl (13.5-17.5); MEAN CORPUSCULAR HEMOGLOBIN 30.4 pg (27.0-33.0); MEAN CORPUSCULAR VOLUME 94.8 fl (80.0-96.0); PLATELET COUNT, AUTOMATED 189 10^3/uL (150-450); RED CELL DISTRIBUTION WIDTH 15.3 % (11.5-14.5); WHITE BLOOD COUNT 7.4 10^3/uL (4.0-10.0)
[2018-03-12 07:00] LABS: ANION GAP 9 MEQ/L (8-16); BLOOD UREA NITROGEN 28 MG/DL (7-18); CALCIUM LEVEL 7.8 MG/DL (8.8-10.2); CARBON DIOXIDE LEVEL 26 MEQ/L (21-32); CHLORIDE LEVEL 104 MEQ/L (98-107); CREATININE FOR GFR 1.66 MG/DL (0.70-1.30); GLOMERULAR FILTRATION RATE 41.9 (>35); GLUCOSE, FASTING 87 MG/DL (70-100); MAGNESIUM LEVEL 2.4 MG/DL (1.8-2.4); POTASSIUM SERUM 4.1 MEQ/L (3.5-5.1); SODIUM LEVEL 139 MEQ/L (136-145)
[2018-03-12] MEDS: ACETAMINOPHEN TAB 650MG DOSE (2X325MG) PO (08:28)
[2018-03-12] MEDS: PANTOPRAZOLE 40MG TAB (PROTONIX) PO (08:29)
[2018-03-12] MEDS: FOLIC ACID 1 MG TAB PO (08:29)
[2018-03-12] MEDS: SPIRONOLACTONE 25 MG TAB PO (08:29)
[2018-03-12] MEDS: FERROUS GLUCONATE 324 MG TAB PO (08:29)
[2018-03-12] MEDS: TORSEMIDE 20 MG TAB PO (08:29)
[2018-03-12] MEDS: ASPIRIN 81 MG ENTERIC TAB PO (08:29)
== END 2018-03-12 14:05 | disposition home or self-care (01) | DRG 378 ==
LOC: M MSPAV 03-09 14:21 → M ED 15:01 → M ED INP 18:39 → M ICU 21:21
PROC: 0DJ08ZZ Inspection of Upper Intestinal Tract, Via Natural or Artificial Opening Endoscopic (ICD-10-PCS; principal; 2018-03-08 09:00)
PROC: 0DBQ8ZZ Excision of Anus, Via Natural or Artificial Opening Endoscopic (ICD-10-PCS; 2018-03-08 09:51)
PROC: 30233N1 Transfusion of Nonautologous Red Blood Cells into Peripheral Vein, Percutaneous Approach (ICD-10-PCS; 2018-03-08 09:51)
DX: K92.2 Gastrointestinal hemorrhage, unspecified (principal); N17.9 Acute kidney failure, unspecified; D50.0 Iron deficiency anemia secondary to blood loss (chronic); K20.9 Esophagitis, unspecified; I48.91 Unspecified atrial fibrillation; K57.30 Diverticulosis of large intestine without perforation or abscess without bleeding; K64.0 First degree hemorrhoids; K44.9 Diaphragmatic hernia without obstruction or gangrene; R04.0 Epistaxis; I95.9 Hypotension, unspecified; I72.3 Aneurysm of iliac artery; N18.3 Chronic kidney disease, stage 3 (moderate); I25.10 Atherosclerotic heart disease of native coronary artery without angina pectoris; I12.9 Hypertensive chronic kidney disease with stage 1 through stage 4 chronic kidney disease, or unspecified chronic kidney disease; K21.9 Gastro-esophageal reflux disease without esophagitis; K59.00 Constipation, unspecified; Z95.0 Presence of cardiac pacemaker; Z79.82 Long term (current) use of aspirin; Z79.01 Long term (current) use of anticoagulants; Z79.899 Other long term (current) drug therapy; Z87.891 Personal history of nicotine dependence; K62.0 Anal polyp

== ENCOUNTER → 2018-03-27 | Outpatient (REF) | payer MEDICARE, OTHER ==
[2018-03-27 14:48] LABS: IRON (FE) 23 UG/DL (65-175); PERCENT SATURATION 5.6 % (19.7-50.0); TOTAL IRON BINDING CAPACITY 413 UG/DL (250-450)
[2018-03-27 15:25] LABS: RETIC HEMOGLOBIN EQUIVALENT 28.9 pg (24-36); RETICULOCYTE # 49.5 10^9/L (17-77); RETICULOCYTE % 1.6 % (0.5-1.5)
== END ==
LOC: M LAB REF 14:08
DX: N18.3 Chronic kidney disease, stage 3 (moderate) (principal); D63.1 Anemia in chronic kidney disease
CPT/HCPCS: 83550

== ENCOUNTER → 2018-04-24 | Outpatient (REF) | payer MEDICARE, OTHER ==
[2018-04-24 13:55] LABS: IRON (FE) 145 UG/DL (65-175); PERCENT SATURATION 34.3 % (19.7-50.0); RETIC HEMOGLOBIN EQUIVALENT 30.5 pg (24-36); RETICULOCYTE # 33.7 10^9/L (17-77); RETICULOCYTE % 0.9 % (0.5-1.5); TOTAL IRON BINDING CAPACITY 423 UG/DL (250-450)
== END ==
LOC: M LAB REF 11:52
DX: N18.9 Chronic kidney disease, unspecified (principal); D63.1 Anemia in chronic kidney disease
CPT/HCPCS: 83550

== ENCOUNTER → 2018-06-05 | Outpatient (CLI) | payer MEDICARE, OTHER ==
[~2018-06-05] MED LIST changes: +ASPI81TA85 PO; +COUM10TA PO; +COUM7.5T PO; +CYAN1000VL IM; -DOK100TA; +DOK100TA PO; +FAMO40TA3 PO; +FERR32TA PO; +FOLI1TAB5 PO; +METO25TA4 PO; +MICR10CA PO; +MULT1CHW26 PO; +MULTLIQ7 PO; +NEXI20CA PO; +PANT40TA3 PO; +SIMV10TA2 PO; +SPIR-10; +SPIR-10 PO; -SPIR25TA2; +SUCR1TA PO; +TORS20TA2 PO; +TYLE325T5 PO; +VALS1TAB49 PO; +XARE15TA PO
--- NOTE | 2018-06-05 13:57 | REP ---
Chest two views HISTORY: Shortness of breath Comparison: 03/07/2018 An increase in interstitial markings is present in the lungs consistent with chronic interstitial change. There is blunting of the right costophrenic angle due to pleural thickening. The cardiac silhouette is enlarged. The pulmonary vasculature is normal in appearance. The bony structure is intact. A cardiac pacemaker is present. IMPRESSION: 1. Chronic interstitial change. 2. Cardiomegaly. Electronically Signed by Jason Gomez MD 06/05/2018 01:48 P
== END ==
LOC: M WUC 13:26
PROVIDERS: ATTEND Nurse Practitioner Adult Health
DX: J84.9 Interstitial pulmonary disease, unspecified (principal); I51.7 Cardiomegaly; Z95.0 Presence of cardiac pacemaker; R06.02 Shortness of breath; I50.9 Heart failure, unspecified; Z77.090 Contact with and (suspected) exposure to asbestos

== ENCOUNTER → 2018-09-27 | Outpatient (CLI) | payer MEDICARE, OTHER ==
[~2018-09-27] MED LIST changes: +FOLI1TAB11 PO; -FOLI1TAB5 PO
--- NOTE | 2018-09-27 12:34 | REP ---
Left knee series: Five views. History: Chronic left knee pain. Findings: Prominent vascular calcifications noted. There is chondrocalcinosis. There is moderate osteoarthritis with lateral compartment joint space narrowing and osteophyte formation. Medial and patellofemoral compartment spurring is noted. No erosive changes seen. No bony destructive lesion or fracture is noted. Impression: Moderate three compartment osteoarthritis. Fairly prominent vascular calcification. No acute bony abnormality Electronically Signed by Atilio Seo MD 09/27/2018 12:25 P
== END ==
LOC: M WUC 12:03
PROVIDERS: ATTEND Physician Assistant
DX: M25.562 Pain in left knee (principal); M17.12 Unilateral primary osteoarthritis, left knee; M25.862 Other specified joint disorders, left knee

== ENCOUNTER → 2018-12-22 | Outpatient (CLI) | payer MEDICARE, OTHER ==
[2018-12-22 17:35] LABS: CALCIUM LEVEL 8.4 MG/DL (8.8-10.2); CREATININE FOR GFR 1.75 MG/DL (0.70-1.30); GLOMERULAR FILTRATION RATE 39.4 (>35); MAGNESIUM LEVEL 2.5 MG/DL (1.8-2.4); POTASSIUM SERUM 3.9 MEQ/L (3.5-5.1)
== END ==
LOC: M WUC 13:22
PROVIDERS: ATTEND Physician Assistant
DX: I50.32 Chronic diastolic (congestive) heart failure (principal); I48.2 Chronic atrial fibrillation

== ENCOUNTER → 2019-01-16 | Outpatient (CLI) | payer MEDICARE, OTHER ==
--- NOTE | 2019-01-16 11:44 | REP ---
Clinical: CHF. Technique: PA and lateral. Comparison: 06/05/2018. Findings: Cardiomegaly is appreciated with pacemaker and cardiac valve repair. Mild bibasilar atelectasis and small pleural reactions may reflect early CHF type changes. No pneumothorax. Skeletal structures stable. Impression: Cardiomegaly and findings to suggest very mild/early CHF. Electronically Signed by Grant Conley MD 01/16/2019 11:36 A
== END ==
LOC: M WUC 11:07
PROVIDERS: ATTEND Internal Medicine
DX: I50.20 Unspecified systolic (congestive) heart failure (principal)

== ENCOUNTER 2019-03-07 08:31 | Inpatient (IN) | payer MEDICARE, OTHER ==
[~2019-03-07] VITALS: Ht 177.8 cm; Wt 86.8 kg
[~2019-03-07 08:31] MED LIST changes: -SIMV10TA2; -SIMV10TA2 PO; +SIMV10TA21; +SIMV10TA21 PO; -VALS1TAB49 PO; +VALS40TA9 PO
[2019-03-07 09:19] LABS: BASO % 0.4 % (0.0-1.0); EOS # 0.2 10^3/uL (0.0-0.5); EOS % 2.8 % (0.0-3.0); HEMOGLOBIN 13.2 g/dl (13.5-17.5); LYMPH % 13.4 % (24.0-44.0); MEAN CORPUSCULAR HEMOGLOBIN 29.1 pg (27.0-33.0); MEAN CORPUSCULAR HGB CONC 30.7 g/dl (32.0-36.5); MEAN CORPUSCULAR VOLUME 94.7 fl (80.0-96.0); MONO # 0.9 10^3/uL (0.0-0.8); MONO % 12.9 % (0.0-5.0); NEUTROPHILS % 70.2 % (36.0-66.0); PLATELET COUNT, AUTOMATED 206 10^3/uL (150-450); RED BLOOD COUNT 4.54 10^6/uL (4.30-6.10); WHITE BLOOD COUNT 7.1 10^3/uL (4.0-10.0)
[2019-03-07 09:36] LABS: INR 1.3; PROTHROMBIN TIME 15.9 SECONDS (11.8-14.0)
[2019-03-07 09:46] LABS: ALBUMIN 3.8 GM/DL (3.2-5.2); BILIRUBIN,DIRECT 0.9 MG/DL (0.0-0.2); BILIRUBIN,TOTAL 1.6 MG/DL (0.2-1.0); CALCIUM LEVEL 8.8 MG/DL (8.8-10.2); CK-MB VALUE MASS 2.6 NG/ML (<3.6); CREATININE FOR GFR 1.85 MG/DL (0.70-1.30); GLOMERULAR FILTRATION RATE 36.9 (>35); MAGNESIUM LEVEL 2.6 MG/DL (1.8-2.4); MB/CK RELATIVE INDEX 8.39 (< OR =4); POTASSIUM SERUM 4.2 MEQ/L (3.5-5.1); THYROID STIMULATING HORMONE 2.03 uIU/ML (0.358-3.740); TOTAL PROTEIN 6.7 GM/DL (6.4-8.2); TROPONIN I 0.09 NG/ML (< 0.10)
--- NOTE | 2019-03-07 10:06 | REP ---
CHEST, PORTABLE: AP portable view of the chest is performed. COMPARISON: 01/16/2019 as well as other prior exams. There is cardiomegaly with mild vascular congestion and interstitial edema. A tiny amount of pleural fluid is seen bilaterally. The findings are compatible with mild CHF. There is calcification of the thoracic aorta. Mediastinal silhouette is unchanged. Left dual lead pacemaker is again noted. IMPRESSION: Findings compatible with cardiomegaly and mild CHF. Electronically Signed by Onur Davies MD 03/08/2019 05:49 P
[2019-03-07] MEDS ORDERED: FUROSEMIDE 100 MG/10 ML VIAL (J1940) IV ONE (10:45)
[2019-03-07] MEDS ORDERED: POTA10TA14 PO (11:48)
[2019-03-07] MEDS ORDERED: TORS20TA2 PO (11:48)
[2019-03-07] MEDS ORDERED: MIRALAX *UNIT DOSE* 17GM PACKET PO PRN (12:15)
--- NOTE | 2019-03-07 13:40 | HPEPDOC ---
[facility] Medical History & Physical Date of Admission Mar 07, 2019 Date of Service: Mar 07, 2019 Primary Care Physician: Jr Dale Collins Attending Physician: YOEL ZARAGOZA MD History and Physical CHIEF COMPLAINT: Leg swelling HISTORY OF PRESENT ILLNESS: Patient is an 89-year-old male who presents to the emergency department with increased leg swelling today. Patient was unable to put on any shoes, slippers, socks, or his compression stockings this morning. Patient says he is also slightly short of breath however, he has been short of breath for the last 2 years. Shortness of breath is worse with exertion. Patient says his shortness of breath is no better or no worse than it usually is. Patient says the leg swelling is much worse than it usually is. Other than the increased leg swelling, patient has no complaints. Patient denies feeling ill. Patient has been eating his normal diet been drinking his normal amount of fluids according to him. Nothing else has really changed other than the increased leg swelling. Patient says he is also constipated with his last bowel movement being 5 days ago. No other complaints at this time. PAST MEDICAL HISTORY: 1. Atrial fibrillation. 2. Coronary artery disease with stenting. 3. Hypertension. 4. Mitral valve regurgitation with mitral valve repair. 5. Symptomatic bradycardia requiring pacemaker placement. 6. Iron deficiency anemia secondary to GI bleed. 7. Gastroesophageal reflux disease. PAST SURGICAL HISTORY: 1. Mitral valve replacement. 2. Left hand surgery. 3. Coronary stent placement. 4. Pacemaker placement SOCIAL HISTORY: Patient has been for 68 years and he lives with his . The patient and his have a cat. Patient used to smoke packs of cigarettes a day and quit about 9 years ago. Patient drinks a glass or 2 of wine with dinner once or twice a week. Patient denies any illicit drug use. 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 FAMILY HISTORY: Patient's parents lived into their 90s and did not have any health issues that he was aware of. ALLERGIES: Please see below. REVIEW OF SYSTEMS: General: Patient denies fevers HEENT: Patient denies headaches Cardiovascular: Patient denies chest pain Respiratory: Patient endorses shortness of breath as described in the HPI. Patient endorses a cough occasionally that is nonproductive GI: Patient endorses constipation which is chronic. Patient denies abdominal pain, nausea, vomiting, diarrhea : Patient denies pain or difficulty with urination Neurological: Patient denies numbness or tingling in extremities Extremities: Patient's lower extremities are bilaterally swollen as per HPI. Skin: Patient denies any rashes or lesions on the skin. Lymphatic: Patient denies any lumps or bumps and neck, axilla or groin. HOME MEDICATIONS: Please see below. PHYSICAL EXAMINATION: VITAL SIGNS: Temperature 97.9F, pulse 80, respiratory rate 16, blood pressure 147/65 (92), pulse oximetry and 96 % on room air. General: Alert and oriented male patient who was laying on the emergency room stretcher when I walked in the room. Patient was hard of hearing and only had one hearing aid in. Patient does not appear to be in any acute distress however, after talking for a while, patient did appear to be mildly short of breath. HEENT: Normocephalic, atraumatic, moist mucous membranes. Neck: No JVD or lymphadenopathy Cardiac: Regular rate and rhythm, 2/6 systolic murmur heard loudest over the fifth intercostal space mid clavicular line. Pulm: Crackles in the bilateral bases. Clear to auscultation in all the lung keenan. Abd: Nondistended, nontender to palpation, normal bowel sounds Ext: 23 plus pitting edema bilateral lower extremities. There was skin changes in the lower gutiérrez is consistent with chronic venous stasis. Neurological: Cranial nerves II through XII intact bilaterally. Patient reports equal sensation in upper and lower extremities. Patient is able to move upper and lower extremities equally bilaterally LABORATORY DATA: See below. IMAGING: A chest x-ray performed on 03/07/2019 shows findings compatible with cardiomegaly and mild CHF MICROBIOLOGY: Please see below. ASSESSMENT: Patient is an 89-year-old male who presented with increased leg swelling and chronic shortness of breath who has a history of congestive heart failure, mitral valve regurgitation, and coronary artery disease who presents most likely with a congestive heart failure exacerbation. PLAN: 1. CHF exacerbation. Patient is on torsemide 60 mg twice a day outpatient. We'll start him on 80 mg of IV furosemide every 8 hours. We will do daily weights and continue to monitor his I's and O's. I will put him on 1800 mL fluid restriction and give the patient a 2 g sodium diet. Patient's last echocardiogram was in August 2017. This will be repeated. We'll trend the patient's troponins which is so far been negative. We will continue to monitor the patient. Patient has pacemaker. Patient is on spironolactone. 2. Coronary artery disease. We'll continue the patient's aspirin and spironolac tone. 3. Chronic constipation. I'll continue the patient's docusate sodium 100 mg twice a day and added MiraLAX. 4. Atrial fibrillation. Patient had been on anticoagulation up until February 2018 when the patient had a GI bleed. Patient was instructed to stop present evaluation of follow up with cardiology for whether or not he needed to be restarted. I do not have any records at this time for why the patient was stopped on his anticoagulation however, we'll not start anticoagulation at this time. 5. GERD. Patient will be continued on famotidine 40 mg daily at bedtime. 6. DVT prophylaxis. Heparin 5000 units every 8 hours. 7. CODE STATUS: Patient says that he has a DO NOT RESUSCITATE order at home in a living will and would like to be a DO NOT RESUSCITATE. Patient's said she will bring in the paperwork later on either today or tomorrow. Patient was will and has signed a MOLST for stating that he wants to be a DNR/DNI. I performed a history and physical examination of the patient and discussed their management with the above documenter. I reviewed the note and agree with the documented findings and plan of care. Vital Signs Vital Signs Date Time Temp Pulse Resp B/P (MAP) Pulse Ox O2 Delivery O2 Flow Rate FiO2 03/07/19 12:01 80 16 147/65 (92) 96 03/07/19 08:32 97.9 Room Air Laboratory Data Labs 24H Laboratory Tests 2 03/07/19 08:55: Prothrombin Time 15.9H, Prothromb Time International Ratio 1.30 03/07/19 09:02: Immature Granulocyte % (Auto) 0.3, White Blood Count 7.1, Red Blood Count 4.54, Hemoglobin 13.2L, Hematocrit 43.0, Mean Corpuscular Volume 94.7, Mean Corpuscular Hemoglobin 29.1, Mean Corpuscular Hemoglobin Concent 30.7L, Red Cell Distribution Width 16.9H, Platelet Count 206, Neutrophils (%) (Auto) 70.2H, Lymphocytes (%) (Auto) 13.4L, Monocytes (%) (Auto) 12.9H, Eosinophils (%) (Auto) 2.8, Basophils (%) (Auto) 0.4, Neutrophils # (Auto) 5.0, Lymphocytes # (Auto) 1.0L, Monocytes # (Auto) 0.9H, Eosinophils # (Auto) 0.2, Basophils # (Auto) 0.0, Nucleated Red Blood Cells % (auto) 0.0, Anion Gap 9, Glomerular Filtration Rate 36.9, Calcium Level 8.8, Magnesium Level 2.6H, Aspartate Amino Transf (AST/SGOT) 27, Alanine Aminotransferase (ALT/SGPT) 24, Alkaline Phosphatase 265H, Total Bilirubin 1.6H, Direct Bilirubin 0.9H, Total Creatine Kinase 31L, Creatine Kinase MB 2.6, Creatine Kinase MB Relative Index 8.39H, Troponin I 0.09, QF-Ses-Z-Type Natriuretic Peptide 2802H, Total Protein 6.7, Albumin 3.8, Albumin/Globulin Ratio 1.31, Lipase 121, Thyroid Stimulating Hormone (TSH) 2.030 03/07/19 13:00: CBC/BMP Laboratory Tests 03/07/19 09:02 Red Blood Count 4.54, Mean Corpuscular Volume 94.7, Mean Corpuscular Hemoglobin 29.1, Mean Corpuscular Hemoglobin Concent 30.7 L, Red Cell Distribution Width 16.9 H, Neutrophils (%) (Auto) 70.2 H, Lymphocytes (%) (Auto) 13.4 L, Monocytes (%) (Auto) 12.9 H, Eosinophils (%) (Auto) 2.8, Basophils (%) (Auto) 0.4, Neutrophils # (Auto) 5.0, Lymphocytes # (Auto) 1.0 L, Monocytes # (Auto) 0.9 H, Eosinophils # (Auto) 0.2, Basophils # (Auto) 0.0 Microbiology Microbiology 03/07/19 Blood Culture, Received Pending 03/07/19 Blood Culture, Received Pending Home Medications Scheduled Aspirin (Aspir 81) 81 Mg Tab, 81 MG PO DAILY Cyanocobalamin (Cyanocobalamin Injection) 1,000 Mcg/1 Ml Inj, 1,000 MCG IM MTHLY TAKES ONCE MONTHLY ON THE Saturday OF THE MONTH Docusate Sodium (Dok) 100 Mg Tab, 100 MG PO BID Famotidine (Famotidine) 40 Mg Tab, 40 MG PO QHS Folic Acid (Folic Acid) 1 Mg Tab, 1 MG PO DAILY Multivit-Minerals/Folic Acid (Adult Multi Gummies) 1 Chw Chw, 1 CHW PO DAILY Potassium Chloride (Potassium Chloride) 10 Meq Tablet.er, 10 MEQ PO DAILY Simvastatin (Simvastatin) 10 Mg Tab, 10 MG PO QHS Spironolactone (Spironolactone) 25 Mg Tab, 25 MG PO DAILY Torsemide (Torsemide) 20 Mg Tablet, 80 MG PO BID@, Scheduled PRN Nitroglycerin (Nitrostat) 0.4 Mg Subl, 0.4 MG SL NITRO PRN for CHEST PAIN Allergies Coded Allergies: clopidogrel (Verified Allergy, Mild, ITCHING, 03/07/19) A-FIB/CHADSVASC A-FIB History Current/History of A-Fib/PAF?: Yes Current PO Anticoag Therapy: No Age/Risk Factor Scoring CHADSVASC: CHADSVASC Response (Comments) Value Age Risk Factor Age >/= 75 years old 2 Gender Risk Factor Male 0 Hx of CHF Yes 1 Hx of HTN Yes 1 Hx of Stroke/TIA/or VTE No 0 Hx of Diabetes No 0 Hx of Vascular Disease No 0 Total 4 Treatment Treatment ordered: NONE Reason Anticoagulant not given: Other Other reason anticoagulant not: Per outpatient cardiology SAMANTHA QURESHI DO Mar 07, 2019 13:40 YOEL ZARAGOZA MD Mar 09, 2019 13:51
[2019-03-07] MEDS: HEPARIN SOD (PORCINE) 5000 UNITS/ML VIAL SC SCH ×2 (14:20→21:53)
[2019-03-07 17:22] VITALS: BP 98/65
[2019-03-07] MEDS: FUROSEMIDE 100 MG/10 ML VIAL (J1940) IV SCH (17:55)
[2019-03-07 20:00] VITALS: BP 107/72
[2019-03-07] MEDS: FAMOTIDINE 20 MG TAB PO SCH (21:36)
[2019-03-07] MEDS: DOCUSATE SODIUM 100 MG CAP PO SCH (21:36)
[2019-03-07] MEDS: SIMVASTATIN 10 MG TAB PO SCH (21:36)
[2019-03-08] VITALS: BP 112/56
[2019-03-08] MEDS: FUROSEMIDE 100 MG/10 ML VIAL (J1940) IV SCH ×3 (01:46→17:37)
[2019-03-08 04:00] VITALS: BP 132/77
[2019-03-08 04:59] LABS: HEMATOCRIT 42.7 % (42.0-52.0); HEMOGLOBIN 13.4 g/dl (13.5-17.5); MEAN CORPUSCULAR HEMOGLOBIN 30.2 pg (27.0-33.0); MEAN CORPUSCULAR HGB CONC 31.4 g/dl (32.0-36.5); MEAN CORPUSCULAR VOLUME 96.2 fl (80.0-96.0); PLATELET COUNT, AUTOMATED 202 10^3/uL (150-450); RED BLOOD COUNT 4.44 10^6/uL (4.30-6.10); WHITE BLOOD COUNT 6.2 10^3/uL (4.0-10.0)
[2019-03-08 05:22] LABS: CALCIUM LEVEL 8.9 MG/DL (8.8-10.2); CREATININE FOR GFR 1.69 MG/DL (0.70-1.30); POTASSIUM SERUM 4.1 MEQ/L (3.5-5.1)
[2019-03-08] MEDS: HEPARIN SOD (PORCINE) 5000 UNITS/ML VIAL SC SCH ×3 (06:09→21:06)
[2019-03-08 08:00] VITALS: BP 118/62
[2019-03-08] MEDS: ASPIRIN 81 MG ENTERIC TAB PO SCH (08:00)
[2019-03-08] MEDS: ACETAMINOPHEN TAB 650MG DOSE (2X325MG) PO PRN ×2 (08:00→16:43)
[2019-03-08] MEDS: POTASSIUM CHLORIDE 10 MEQ SR TABLET PO SCH (08:00)
[2019-03-08] MEDS: SPIRONOLACTONE 25 MG TAB PO SCH (08:00)
[2019-03-08] MEDS: FOLIC ACID 1 MG TAB PO SCH (08:00)
[2019-03-08] MEDS: DOCUSATE SODIUM 100 MG CAP PO SCH ×2 (08:00→21:06)
--- NOTE | 2019-03-08 10:10 | IPNPDOC ---
Date Seen The patient was seen on 03/08/19. Progress Note SUBJECTIVE: Patient tells me that he is breathing more easily today he is not back to normal but he was able to sleep well. He tells me that he is not having any cough he tells me he did not have any chest pressure he denies any palpitations otherwise patient denies nausea, vomiting, fevers, chills OBJECTIVE PHYSICAL EXAMINATION: VITAL SIGNS: Please see below. GENERAL: Pleasant elderly man very hard of hearing but able to communicate with his hearing aids in sitting up in bed awake alert oriented speaking in complete sentences no acute distress HEENT: Moist mucous membranes still some elevation in CVP CARDIOVASCULAR: S1 S2 regular no additional heart sounds appreciated. RESPIRATORY: Clear to auscultation bilaterally. Diminished breath sounds at the bases with scattered bibasilar Rales ABDOMINAL: Bowel sounds present abdomen soft and nontender EXTREMITIES: No clubbing cyanosis 1+ edema significant improvement from previous days exam NEUROLOGICAL: Spontaneously moves all 4 extremities cranial 2 through 12 grossly intact no gross focal deficits appreciated PSYCHOLOGICAL: Appropriate LABORATORY DATA, MICROBIOLOGY: Please see below. IMAGING STUDIES: Chest x-ray:Findings compatible with cardiomegaly and mild CHF. ASSESSMENT AND PLAN: This is 89-year-old man with acute on chronic decompensated diastolic congestive heart failure. PROBLEMS: 1. Acute on chronic decompensated diastolic congestive heart failure: Appear to be secondary to dietary nonadherence. I did a lengthy conversation with him regarding fluid restriction salt restriction, his who is bedside yesterday did report to me he has not been compliant whatsoever with these. I did a lengthy conversation with him regarding daily weights which he assures me he is done. Continue with I's and O's IV diuresis with Lasix which she is having a positive response to. He is continued on spironolactone. He is not on an Silver or an arm And follow-up with his soil conservation aide Dr. Lemons. We are waiting the resu lts of an echocardiogram he is had significant ectopy his potassium and magnesium are optimized we will reevaluate his ejection fraction. His troponins are negative 2. Coronary artery disease: Patient is on an aspirin as well as statin curiously he is not on a beta zuhair we'll defer to cardiology. He does follow up closely with Dr. Lemons's office 3. Chronic constipation: Continue with bowel regimen he is doing well while here. 4. Atrial fibrillation: He is not on any rate controlling agents or anticoagulation. He does not appear to be requiring any rate controlling agents, he was taken off of anticoagulation due to a fairly significant GI bleed. Defer to his soil conservation aide, this medication. 5. Gastroesophageal reflux disease: Continue with Pepcid DVT prophylaxis: heparin DISPOSITION: Patient is a DNR independent in the room I suspect she could be discharged home as early as tomorrow pending his echocardiogram results. VS, I&O, 24H, Fishbone Vital Signs/I&O Vital Signs Date Time Temp Pulse Resp B/P (MAP) Pulse Ox O2 Delivery O2 Flow Rate FiO2 03/08/19 08:00 97.5 66 20 118/62 (80) 95 03/07/19 08:32 Room Air I&O- Last 24 Hours up to 6 AM 03/08/19 06:00 Intake Total 100 ml Output Total 1895 ml Balance -1795 ml Laboratory Data 24H LABS Laboratory Tests 2 03/07/19 13:00: Troponin I 0.07# 03/07/19 17:49: Troponin I 0.06 03/08/19 04:49: Nucleated Red Blood Cells % (auto) 0.0, Anion Gap 7L, Glomerular Filtration Rate 41.0, Blood Urea Nitrogen 44H, Creatinine 1.69H, Sodium Level 140, Potassium Level 4.1, Chloride Level 103, Carbon Dioxide Level 30, Calcium Level 8.9 CBC/BMP Laboratory Tests 03/08/19 04:49 Red Blood Count 4.44, Mean Corpuscular Volume 96.2 H, Mean Corpuscular Hem oglobin 30.2, Mean Corpuscular Hemoglobin Concent 31.4 L, Red Cell Distribution Width 17.0 H, Calcium Level 8.9 Microbiology Microbiology 03/07/19 Blood Culture - Preliminary, Resulted No growth after 24 hours . All specim... 03/07/19 Blood Culture - Preliminary, Resulted No growth after 24 hours . All specim... YOEL ZARAGOZA MD Mar 08, 2019 10:10
[2019-03-08 12:00] VITALS: BP 120/72
--- NOTE | 2019-03-08 13:24 | ECGEPIP ---
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
[2019-03-08 16:00] VITALS: BP 110/62
[2019-03-08 20:00] VITALS: BP 108/70
[2019-03-08] MEDS: SIMVASTATIN 10 MG TAB PO SCH (21:06)
[2019-03-08] MEDS: FAMOTIDINE 20 MG TAB PO SCH (21:06)
[2019-03-09] VITALS: BP 105/62
[2019-03-09] MEDS: FUROSEMIDE 100 MG/10 ML VIAL (J1940) IV SCH ×2 (01:25→09:04)
[2019-03-09 04:00] VITALS: BP 110/64
[2019-03-09 05:05] LABS: HEMATOCRIT 41.2 % (42.0-52.0); HEMOGLOBIN 12.6 g/dl (13.5-17.5); MEAN CORPUSCULAR HEMOGLOBIN 28.9 pg (27.0-33.0); MEAN CORPUSCULAR HGB CONC 30.6 g/dl (32.0-36.5); MEAN CORPUSCULAR VOLUME 94.5 fl (80.0-96.0); PLATELET COUNT, AUTOMATED 188 10^3/uL (150-450); RED BLOOD COUNT 4.36 10^6/uL (4.30-6.10); WHITE BLOOD COUNT 6.1 10^3/uL (4.0-10.0)
[2019-03-09] MEDS: HEPARIN SOD (PORCINE) 5000 UNITS/ML VIAL SC SCH ×2 (05:07→14:00)
[2019-03-09 05:25] LABS: CALCIUM LEVEL 8.3 MG/DL (8.8-10.2); CREATININE FOR GFR 1.49 MG/DL (0.70-1.30); GLOMERULAR FILTRATION RATE 47.4 (>35); POTASSIUM SERUM 3.6 MEQ/L (3.5-5.1)
[2019-03-09 05:58] VITALS: BP 122/66
[2019-03-09 08:00] VITALS: BP 116/64
[2019-03-09] MEDS: SPIRONOLACTONE 25 MG TAB PO SCH (09:04)
[2019-03-09] MEDS: DOCUSATE SODIUM 100 MG CAP PO SCH (09:04)
[2019-03-09] MEDS: FOLIC ACID 1 MG TAB PO SCH (09:05)
[2019-03-09] MEDS: ASPIRIN 81 MG ENTERIC TAB PO SCH (09:05)
[2019-03-09] MEDS: POTASSIUM CHLORIDE 10 MEQ SR TABLET PO SCH (09:05)
[2019-03-09 12:00] VITALS: BP 110/58
--- NOTE | 2019-03-09 12:29 | ECHO ---
DATE OF STUDY: 03/07/2019 REFERRING PHYSICIAN: Geoffrey Barba DO INDICATION: Congestive heart failure. HEIGHT: 175 cm. WEIGHT: 87 kg. DIMENSIONS; IVS: 1.3 LV: 5.3 LVPW: 1.3 LA: 6.7 Aorta: 3.2 IVC: 3.0 Left atrial volume index: 124. FINDINGS: The study is of difficult technical quality with somewhat limited visualization. The patient is in atrial fibrillation with intermittent ventricular pacing and heart rate fluctuating between 75 and 120 beats per minute. Left ventricle is normal size. It is very difficult to comment on the left ventricular systolic function due to irregularity of the heart rate, underlying conduction abnormality and intermittent pacing. Based on my estimate, left ventricle ejection fraction (LVEF) is approximately moderately reduced. Computer calculated ejection fraction 49%, which in my opinion is overly optimistic. There appears to be distinct wall motion abnormality involving the apex. Right ventricle is dilated and hypokinetic. There is severe biatrial enlargement, right atrium is larger than left. Aortic valve is heavily sclerotic. Based on 2-D imaging, I would estimate around at least mild aortic stenosis. Mitral valve exhibits also very prominent degenerative abnormalities with mitral annular calcifications. Leaflets seem to have preserved mobility. Tricuspid valve was poorly seen. Pulmonic valve appears normal. There are artifacts suggestive of pacemaker leads in right-sided chambers. No pericardial effusion is noted. Inferior vena cava is markedly dilated and there is no collapse with respiration, indicative of likely very high central venous pressure. Aortic root is normal. Aortic arch and abdominal aorta were not well seen. Doppler interrogation of aortic valve reveals mild insufficiency and at least mild stenosis. The peak gradient was documented at 16 and mean gradient 8 mmHg, but I am not convinced that the alignment was sufficiently accurate. There is approximately moderate mitral insufficiency and severe tricuspid insufficiency. Calculated pulmonary artery pressure is over 50 mmHg. Evaluation of diastolic function is inconclusive due to underlying atrial fibrillation. CONCLUSIONS: 1. Study is of fair technical quality. 2. Normal LV size with mild left ventricular hypertrophy (LVH) and approximately moderate LV systolic dysfunction. Segmental wall motion abnormality as noted above. 3. Heavily calcified aortic valve with mild stenosis and mild insufficiency. I cannot rule out that this severity of aortic stenosis is worse than appreciated by the study. 4. Approximately moderate mitral insufficiency with degenerative abnormalities of mitral valve. 5. Severe tricuspid insufficiency. 6. Very high central venous pressure. 7. At least moderate pulmonary hypertension. 8. Severe biatrial enlargement. COMMENT: Subacute bacterial endocarditis (SBE) prophylaxis is not recommended.
[2019-03-09] MEDS ORDERED: TORS20TA2 PO ×2 (12:58→14:46)
[2019-03-09] MEDS ORDERED: TORSEMIDE 20 MG TAB PO SCH (17:00)
--- NOTE | 2019-03-09 18:34 | DS.PDOC ---
Discharge Summary General Date of Admission Mar 07, 2019 at 11:56 Date of Discharge 03/09/19 Primary Care Physician: AIRAM ZHANG DO Attending Physician: YOEL ZARAGOZA MD Discharge Summary PROCEDURES PERFORMED DURING STAY: None. ADMITTING DIAGNOSES: 1. Acute CHF exacerbation 2. CAD 3. Atrial Fibrillation DISCHARGE DIAGNOSES: 1. Acute CHF exacerbation 2. CAD 3. Atrial Fibrillation COMPLICATIONS/CHIEF COMPLAINT: CHF. HISTORY OF PRESENT ILLNESS: Patient is an 89 year old male who presented to the [facility] ER with complaint of increased leg swelling. Patient had stated that he was unable to put on any shoes, slippers, or socks. He was also unable to put his compression stockings on due to the swelling. At the time he had not complained of shortness of breath however states that he did have some shortness of breath with exertion. Patient stated that he did not change his diet and had been continuing his normal amount of fluid intake. Patient had received a chest x-ray in the ER which demonstrated mild vascular congestion and interstitial e mary. He was subsequently admitted for congestive heart failure exacerbation. During his hospital course he had received IV lasix with good response. He had received an echocardiogram under the suspicion that he possibly had worsening ejection fraction possibly from small infarctions. His echocardiogram demonstrated an EF of 49%. The patient noticed improvement in his swelling and breathing. His torsemide dose was increased to 80mg BID. He was subsequently discharged with follow-up with his PCP in 1-2 weeks DISCHARGE MEDICATIONS: Please see below. ALLERGIES: Please see below. PHYSICAL EXAMINATION ON DISCHARGE: VITAL SIGNS: Please see below. GENERAL: Awake, alert and oriented. No acute distress, lying comfortable in bed HEENT: Atraumatic normocephalic. Eyes nonicteric. Trachea is midline NECK: No cervical, axillary or supraclavicular lymphadenopathy CARDIOVASCULAR EXAMINATION: Normal S1, S2, regular rate and rhythm, 2/6 systolic ejection murmur RESPIRATORY EXAMINATION:. Clear vesicular breath sounds bilaterally, although diminished throughout. No wheezes, rhonchi or rales. Good respiratory effort ABDOMINAL EXAMINATION: Soft, nondistended, nontender to palpation in all 4 quadrants. Normoactive bowel sounds throughout EXTREMITIES: Trace bilateral edema. 2+ posterior tibial pulses 2+ radial pulses bilaterally SKIN:. No rashes, lesions NEUROLOGICAL EXAMINATION:. No focal neurological deficits PSYCHIATRIC EXAMINATION:. Mood and affect appear appropriate LABORATORY DATA: Please see below. IMAGING: CHEST, PORTABLE: AP portable view of the chest is performed. COMPARISON: 01/16/2019 as well as other prior exams. There is cardiomegaly with mild vascular congestion and interstitial edema. A tiny amount of pleural fluid is seen bilaterally. The findings are compatible with mild CHF. There is calcification of the thoracic aorta. Mediastinal silhouette is unchanged. Left dual lead pacemaker is again noted. IMPRESSION: Findings compatible with cardiomegaly and mild CHF. Electronically Signed by Onur Davies MD 03/08/2019 05:49 P PROGNOSIS: Fair ACTIVITY: As tolerated. DIET: Sodium Restricted DISCHARGE PLAN: Patient is to be discharged home with follow-up with PCP in 1 week. He is to continue torsemide 80mg bid. He is to adhere to sodium restricted diet. He is to watch his fluid intake with daily weighs. DISPOSITION: 01 Home, Self-Care. DISCHARGE CONDITION: Stable. I saw and evaluated the patient. I agree with the findings and plan of care as documented in the documenters note. I spent 45 minutes coordinating this p atient's discharge. Vital Signs/I&Os Vital Signs Date Time Temp Pulse Resp B/P (MAP) Pulse Ox O2 Delivery O2 Flow Rate FiO2 03/09/19 12:00 97.4 59 16 110/58 (75) 100 03/07/19 08:32 Room Air I&O- Last 24 Hours up to 6 AM 03/09/19 06:00 Intake Total 720 ml Output Total 1225 ml Balance -505 ml Laboratory Data Labs 24H Laboratory Tests 2 03/09/19 04:49: Nucleated Red Blood Cells % (auto) 0.0, Anion Gap 9, Glomerular Filtration Rate 47.4, Blood Urea Nitrogen 37H, Creatinine 1.49H, Sodium Level 139, Potassium Level 3.6, Chloride Level 103, Carbon Dioxide Level 27, Calcium Level 8.3L CBC/BMP Laboratory Tests 03/09/19 04:49 Red Blood Count 4.36, Mean Corpuscular Volume 94.5, Mean Corpuscular Hemoglobin 28.9, Mean Corpuscular Hemoglobin Concent 30.6 L, Red Cell Distribution Width 17.0 H, Calcium Level 8.3 L Microbiology Microbiology 03/07/19 Blood Culture - Preliminary, Resulted No Growth after 48 hours. All Specime... 03/07/19 Blood Culture - Preliminary, Resulted No Growth after 48 hours. All Specime... Discharge Medications Scheduled Aspirin (Aspir 81) 81 Mg Tab, 81 MG PO DAILY, (Reported) Cyanocobalamin (Cyanocobalamin Injection) 1,000 Mcg/1 Ml Inj, 1,000 MCG IM MTHLY, (Reported) TAKES ONCE MONTHLY ON THE Saturday OF THE MONTH Docusate Sodium (Dok) 100 Mg Tab, 100 MG PO BID, (Reported) Famotidine (Famotidine) 40 Mg Tab, 40 MG PO QHS, (Reported) Folic Acid (Folic Acid) 1 Mg Tab, 1 MG PO DAILY, (Reported) Multivit-Minerals/Folic Acid (Adult Multi Gummies) 1 Chw Chw, 1 CHW PO DAILY, (Reported) Potassium Chloride (Potassium Chloride) 10 Meq Tablet.er, 10 MEQ PO DAILY, (Reported) Simvastatin (Simvastatin) 10 Mg Tab, 10 MG PO QHS, (Reported) Spironolactone (Spironolactone) 25 Mg Tab, 25 MG PO DAILY, (Reported) Torsemide (Torsemide) 20 Mg Tablet, 80 MG PO BID@,17 . Scheduled PRN Nitroglycerin (Nitrostat) 0.4 Mg Subl, 0.4 MG SL NITRO PRN for CHEST PAIN, (Reported) Allergies Coded Allergies: clopidogrel (Verified Allergy, Mild, ITCHING, 03/07/19) ROMY KANG DO Mar 09, 2019 18:34 YOLE ZARAGOZA MD Mar 17, 2019 14:30
== END 2019-03-09 14:50 | disposition home or self-care (01) | DRG 293 ==
LOC: M ED 08:31 → M ED INP 11:56 → M ICU 17:15 → M PCU 03-09 05:49
PROVIDERS: ADMIT Internal Medicine; ATTEND Internal Medicine
DX: I50.31 Acute diastolic (congestive) heart failure (principal); I48.91 Unspecified atrial fibrillation; I25.10 Atherosclerotic heart disease of native coronary artery without angina pectoris; Z79.82 Long term (current) use of aspirin; Z79.899 Other long term (current) drug therapy; Z88.8 Allergy status to other drugs, medicaments and biological substances; Z95.2 Presence of prosthetic heart valve; Z95.0 Presence of cardiac pacemaker; K21.9 Gastro-esophageal reflux disease without esophagitis; D50.9 Iron deficiency anemia, unspecified; Z87.891 Personal history of nicotine dependence; K59.00 Constipation, unspecified; Z66 Do not resuscitate; Z91.19 Patient's noncompliance with other medical treatment and regimen

== ENCOUNTER → 2019-04-20 | Outpatient (CLI) | payer MEDICARE, OTHER ==
[~2019-04-20] MED LIST changes: +POTA10TA14 PO; +SIMV10TA2; +SIMV10TA2 PO; -SIMV10TA21; -SIMV10TA21 PO; +VALS1TAB49 PO; -VALS40TA9 PO
[2019-04-20 17:11] LABS: CALCIUM LEVEL 9.7 MG/DL (8.8-10.2); CREATININE FOR GFR 1.99 MG/DL (0.70-1.30); GLOMERULAR FILTRATION RATE 33.9 (>35); POTASSIUM SERUM 3.7 MEQ/L (3.5-5.1)
== END ==
LOC: M WUC 13:09
PROVIDERS: ATTEND Physician Assistant
DX: I50.42 Chronic combined systolic (congestive) and diastolic (congestive) heart failure (principal)

== ENCOUNTER 2019-06-27 16:16 | Emergency (ER) | payer MEDICARE, OTHER ==
[~2019-06-27 16:16] MED LIST changes: -SIMV10TA2; -SIMV10TA2 PO; +SIMV10TA21; +SIMV10TA21 PO; -VALS1TAB49 PO; +VALS40TA9 PO
[2019-06-27] MEDS ORDERED: METO25TA PO (16:27)
[2019-06-27] MEDS ORDERED: DIGO0.127 PO (16:27)
[2019-06-27 17:25] VITALS: BP 108/56
--- NOTE | 2019-06-28 09:54 | REP ---
RIGHT SHOULDER, THREE VIEWS: Three views of the right shoulder performed. No acute fracture or dislocation is seen. There is mild narrowing of the glenohumeral joint. There is moderate narrowing at the acromioclavicular joint. There are chronic interstitial changes in the visualized right lung. Pacemaker leads are also noted. IMPRESSION: Degenerative changes without fracture or dislocation. Electronically Signed by Onur Davies MD 06/28/2019 10:31 A
== END 2019-06-27 17:40 | disposition home or self-care (01) ==
LOC: M ED 16:16
DX: S46.001A Unspecified injury of muscle(s) and tendon(s) of the rotator cuff of right shoulder, initial encounter (principal); Z95.0 Presence of cardiac pacemaker; W18.40XA Slipping, tripping and stumbling without falling, unspecified, initial encounter; Y92.099 Unspecified place in other non-institutional residence as the place of occurrence of the external cause; Y93.9 Activity, unspecified; Y99.9 Unspecified external cause status; Z95.4 Presence of other heart-valve replacement; Z95.5 Presence of coronary angioplasty implant and graft; Z85.828 Personal history of other malignant neoplasm of skin; F03.90 Unspecified dementia, unspecified severity, without behavioral disturbance, psychotic disturbance, mood disturbance, and anxiety; I48.91 Unspecified atrial fibrillation; I50.9 Heart failure, unspecified; E78.00 Pure hypercholesterolemia, unspecified; I10 Essential (primary) hypertension; J90 Pleural effusion, not elsewhere classified; Z87.01 Personal history of pneumonia (recurrent); F17.200 Nicotine dependence, unspecified, uncomplicated; K21.9 Gastro-esophageal reflux disease without esophagitis; Z87.19 Personal history of other diseases of the digestive system; N18.3 Chronic kidney disease, stage 3 (moderate); E53.8 Deficiency of other specified B group vitamins; Z79.82 Long term (current) use of aspirin; Z79.899 Other long term (current) drug therapy; Z88.8 Allergy status to other drugs, medicaments and biological substances

== ENCOUNTER → 2019-07-15 | Outpatient (REF) | payer MEDICARE, OTHER ==
[~2019-07-15] MED LIST changes: +DIGO0.127 PO; +METO25TA PO
== END ==
LOC: M LAB REF 12:29
PROVIDERS: ATTEND Internal Medicine
DX: I48.21 Permanent atrial fibrillation (principal)

== ENCOUNTER → 2019-12-08 | Outpatient (REF) | payer MEDICARE, OTHER ==
[~2019-12-08] MED LIST changes: -COUM7.5T PO; +COUM7.5T6 PO
== END ==
LOC: M LAB REF 15:59
PROVIDERS: ATTEND Nurse Practitioner Adult Health
DX: I48.21 Permanent atrial fibrillation (principal)

== ENCOUNTER 2020-02-24 12:23 | Emergency (ER) | payer MEDICARE, OTHER ==
[~2020-02-24] VITALS: Ht 182.9 cm; Wt 72.3 kg
[~2020-02-24 12:23] MED LIST changes: -ASPI81TA85 PO; +ASPI81TA86 PO; +PANT40TA29 PO; -PANT40TA3 PO
[2020-02-24 13:58] LABS: BASO % 0.4 % (0.0-1.0); EOS # 0.1 10^3/uL (0.0-0.5); EOS % 1.3 % (0.0-3.0); HEMATOCRIT 26.5 % (42.0-52.0); HEMOGLOBIN 8.5 g/dl (13.5-17.5); LYMPH # 0.7 10^3/uL (1.5-5.0); LYMPH % 10.3 % (24.0-44.0); MEAN CORPUSCULAR HGB CONC 32.1 g/dl (32.0-36.5); MEAN CORPUSCULAR VOLUME 99.6 fl (80.0-96.0); MONO % 14.5 % (0.0-5.0); NEUTROPHILS # 4.9 10^3/uL (1.5-8.5); NEUTROPHILS % 73.1 % (36.0-66.0); PLATELET COUNT, AUTOMATED 255 10^3/uL (150-450); RED BLOOD COUNT 2.66 10^6/uL (4.30-6.10); WHITE BLOOD COUNT 6.7 10^3/uL (4.0-10.0)
[2020-02-24 14:09] LABS: INR 1.03; PARTIAL THROMBOPLASTIN TIME 27.9 SECONDS (25.0-38.4); PROTHROMBIN TIME 13.7 SECONDS (11.8-14.0)
--- NOTE | 2020-02-24 14:22 | REPVR ---
PROCEDURE INFORMATION: Exam: XR Chest, 1 View Exam date and time: 02/24/2020 1:13 PM Age: 89 years old Clinical indication: Other: Leg swelling TECHNIQUE: Imaging protocol: XR of the chest Views: Frontal portable sitting upright view of the chest. COMPARISON: CR PORTABLE CHEST X-RAY 03/07/2019 8:50 AM FINDINGS: Tubes, catheters and devices: A mitral valve prosthesis is present. Lungs: The pulmonary vasculature is normal. Increased bibasilar subsegmental atelectasis. Pleural space: No definite pleural effusion. No pneumothorax. Heart/Mediastinum: Stable moderate cardiomegaly. Mediastinum: Stable. Vasculature: Moderate aortic arch atherosclerotic calcification without ectasia. A dual lead left subclavian permanent pacemaker is present. The right atrial and right ventricular leads appear to be in good position. Bones/joints: Stable. IMPRESSION: Increased bibasilar subsegmental atelectasis. Electronically signed by: Michael Spaulding On 02/24/2020 14:22:34 PM
[2020-02-24 14:40] LABS: CALCIUM LEVEL 8.8 MG/DL (8.8-10.2); CK-MB VALUE MASS 1.9 NG/ML (<3.6); CREATININE FOR GFR 1.69 MG/DL (0.70-1.30); DIGOXIN LEVEL 0.8 NG/ML (0.5-2.0); GLOMERULAR FILTRATION RATE 40.9 (>35); MB/CK RELATIVE INDEX 7.04 (< OR =4); POTASSIUM SERUM 4.7 MEQ/L (3.5-5.1); TROPONIN I 0.12 NG/ML (< 0.10)
[2020-02-24] MEDS ORDERED: FUROSEMIDE 40MG/4ML VIAL (J1940) IV ONE (16:15)
[2020-02-24 17:22] LABS: CK-MB VALUE MASS 1.7 NG/ML (<3.6); TROPONIN I 0.1 NG/ML (< 0.10)
[2020-02-24 18:11] VITALS: BP 113/60
--- NOTE | 2020-03-08 15:09 | ECGEPIP ---
[facility] - ED Test Date: 2020-02-24 Pat Name: KYLE GARCIA Department: Room: - Gender: Male Complaint Coordinator: : 1930 Requested By: ZACH MOLINA Order Number: [id number] Reading MD: Abrahan Day Measurements Intervals [place] Rate: 75 P: [place]: 0 QRS: -76 QRSD: 205 T: 93 QT: 453 QTc: 509 Interpretive Statements ELECTRONIC VENTRICULAR PACEMAKER WITH PVC'S ABNORMAL RHYTHM ECG SEE DOWNTIME SCANNED RECORD
== END 2020-02-24 19:14 | disposition home or self-care (01) ==
LOC: M ED 12:23 → EDBD 12:23 → M ED 19:14
DX: I50.9 Heart failure, unspecified (principal); I49.3 Ventricular premature depolarization; Z95.0 Presence of cardiac pacemaker; S41.102A Unspecified open wound of left upper arm, initial encounter; X58.XXXA Exposure to other specified factors, initial encounter; Y92.099 Unspecified place in other non-institutional residence as the place of occurrence of the external cause; Y93.9 Activity, unspecified; Y99.9 Unspecified external cause status; I48.91 Unspecified atrial fibrillation; I10 Essential (primary) hypertension; I71.4 Abdominal aortic aneurysm, without rupture; J98.11 Atelectasis; I51.7 Cardiomegaly; Z79.82 Long term (current) use of aspirin; Z79.899 Other long term (current) drug therapy; Z88.8 Allergy status to other drugs, medicaments and biological substances
CPT/HCPCS: 36415; 71045; 80048; 80162; 82550; 82553; 83880; 84484; 85025; 85610; 85730; 86850; 86900; 86901; 93005; 96374; 99284; J1940

== ENCOUNTER → 2020-03-09 | Outpatient (REF) | payer MEDICARE, OTHER ==
[2020-03-09 17:06] LABS: PERCENT SATURATION 6.5 % (19.7-50.0)
[2020-03-09 17:17] LABS: FOLATE 18.8 NG/ML
[2020-03-09 17:38] LABS: LYMPHOCYTES 4 % (16-44); MONOCYTES 13 % (0-5); NEUTROPHILS 83 % (28-66)
[2020-03-09 17:39] LABS: PLATELET ESTIMATE NORMAL (NORMAL)
== END ==
LOC: M LAB REF 16:27
PROVIDERS: ATTEND Internal Medicine
DX: D72.9 Disorder of white blood cells, unspecified (principal); D63.1 Anemia in chronic kidney disease

== ENCOUNTER 2020-03-31 18:31 | Emergency (ER) | payer MEDICARE, OTHER ==
[~2020-03-31] VITALS: Ht 175.3 cm; Wt 68.2 kg
[2020-03-31 19:34] LABS: BASO % 0.5 % (0.0-1.0); EOS # 0.1 10^3/uL (0.0-0.5); EOS % 2.5 % (0.0-3.0); HEMATOCRIT 28.5 % (42.0-52.0); HEMOGLOBIN 8.6 g/dl (13.5-17.5); LYMPH # 0.9 10^3/uL (1.5-5.0); LYMPH % 15.9 % (24.0-44.0); MEAN CORPUSCULAR HEMOGLOBIN 28.6 pg (27.0-33.0); MEAN CORPUSCULAR HGB CONC 30.2 g/dl (32.0-36.5); MEAN CORPUSCULAR VOLUME 94.7 fl (80.0-96.0); MONO # 0.8 10^3/uL (0.0-0.8); NEUTROPHILS # 3.8 10^3/uL (1.5-8.5); NEUTROPHILS % 66.9 % (36.0-66.0); PLATELET COUNT, AUTOMATED 240 10^3/uL (150-450); RED BLOOD COUNT 3.01 10^6/uL (4.30-6.10); WHITE BLOOD COUNT 5.7 10^3/uL (4.0-10.0)
[2020-03-31 19:59] LABS: PARTIAL THROMBOPLASTIN TIME 31.1 SECONDS (24.2-38.5)
[2020-03-31 20:02] LABS: INR 1.09; PROTHROMBIN TIME 14.4 SECONDS (12.5-14.3)
[2020-03-31 20:45] VITALS: BP 109/56
== END 2020-03-31 21:00 | disposition home or self-care (01) ==
LOC: M ED 18:31 → EDBD 18:31 → M ED 21:00
DX: R04.0 Epistaxis (principal); I48.91 Unspecified atrial fibrillation; I25.10 Atherosclerotic heart disease of native coronary artery without angina pectoris; I10 Essential (primary) hypertension; D64.9 Anemia, unspecified; K21.9 Gastro-esophageal reflux disease without esophagitis; Z95.0 Presence of cardiac pacemaker; Z95.4 Presence of other heart-valve replacement; Z87.891 Personal history of nicotine dependence; Z79.82 Long term (current) use of aspirin; Z79.899 Other long term (current) drug therapy; Z88.8 Allergy status to other drugs, medicaments and biological substances

== ENCOUNTER → 2020-04-07 | Outpatient (REF) | payer MEDICARE, OTHER | LOC: M LAB REF 11:37 | PROVIDERS: ATTEND Nurse Practitioner Adult Health | DX: N18.9 Chronic kidney disease, unspecified (principal); D63.1 Anemia in chronic kidney disease ==

== ENCOUNTER 2020-05-17 11:45 | Emergency (ER) | payer MEDICARE, OTHER ==
[~2020-05-17] VITALS: Ht 180.3 cm; Wt 73.6 kg
[~2020-05-17 11:45] MED LIST changes: -DOK100TA PO; +DOK100TA2 PO
[2020-05-17] MEDS ORDERED: SENO8.6T5 PO (12:21)
[2020-05-17] MEDS ORDERED: TRANEXAMIC ACID 100 MG/ML 10ML VIAL XX ONE (12:45)
[2020-05-17 13:20] LABS: BASO % 0.5 % (0.0-1.0); EOS # 0.2 10^3/uL (0.0-0.5); EOS % 3.5 % (0.0-3.0); HEMOGLOBIN 7.2 g/dl (13.5-17.5); LYMPH % 16.4 % (24.0-44.0); MEAN CORPUSCULAR HEMOGLOBIN 25.7 pg (27.0-33.0); MEAN CORPUSCULAR HGB CONC 28.8 g/dl (32.0-36.5); MEAN CORPUSCULAR VOLUME 89.3 fl (80.0-96.0); MONO # 0.9 10^3/uL (0.0-0.8); MONO % 14.2 % (0.0-5.0); NEUTROPHILS # 4.1 10^3/uL (1.5-8.5); NEUTROPHILS % 65.1 % (36.0-66.0); PLATELET COUNT, AUTOMATED 241 10^3/uL (150-450); WHITE BLOOD COUNT 6.3 10^3/uL (4.0-10.0)
[2020-05-17 13:28] LABS: INR 1.15
[2020-05-17 13:29] LABS: PARTIAL THROMBOPLASTIN TIME 34.6 SECONDS (24.2-38.5)
[2020-05-17 13:42] LABS: ALBUMIN 3.1 GM/DL (3.2-5.2); BILIRUBIN,TOTAL 0.4 MG/DL (0.2-1.0); CALCIUM LEVEL 8.4 MG/DL (8.8-10.2); CREATININE FOR GFR 1.8 MG/DL (0.70-1.30); POTASSIUM SERUM 4.2 MEQ/L (3.5-5.1); TOTAL PROTEIN 5.7 GM/DL (6.4-8.2)
[2020-05-17] MEDS ORDERED: LIDOCAINE W/EPINEPHRINE 1% 20ML VIAL SC ONE (13:45)
[2020-05-17 15:46] LABS: HEMOGLOBIN 7.2 g/dl (13.5-17.5); MEAN CORPUSCULAR HEMOGLOBIN 26.1 pg (27.0-33.0); MEAN CORPUSCULAR HGB CONC 28.8 g/dl (32.0-36.5); MEAN CORPUSCULAR VOLUME 90.6 fl (80.0-96.0); PLATELET COUNT, AUTOMATED 253 10^3/uL (150-450); RED BLOOD COUNT 2.76 10^6/uL (4.30-6.10)
[2020-05-17 17:15] VITALS: BP 129/62
== END 2020-05-17 17:20 | disposition home or self-care (01) ==
LOC: M ED 11:45 → EDBD 11:45 → M ED 17:20
DX: L76.82 Other postprocedural complications of skin and subcutaneous tissue (principal); I48.91 Unspecified atrial fibrillation; I50.9 Heart failure, unspecified; I10 Essential (primary) hypertension; E78.5 Hyperlipidemia, unspecified; N18.30 Chronic kidney disease, stage 3 unspecified; Z79.82 Long term (current) use of aspirin; Z79.899 Other long term (current) drug therapy; Z88.8 Allergy status to other drugs, medicaments and biological substances

== ENCOUNTER → 2020-06-14 | Outpatient (REF) | payer MEDICARE, OTHER ==
[~2020-06-14] MED LIST changes: +SENO8.6T5 PO
[2020-06-14 16:39] LABS: PERCENT SATURATION 4.5 % (19.7-50.0)
== END ==
LOC: M LAB REF 16:13
PROVIDERS: ATTEND Internal Medicine
DX: N18.9 Chronic kidney disease, unspecified (principal); D63.1 Anemia in chronic kidney disease

== ENCOUNTER → 2020-08-09 | Outpatient (REF) | payer MEDICARE, OTHER ==
[~2020-08-09] MED LIST changes: -LISI-542 PO; +LISI-898 PO
== END ==
LOC: M LAB REF 11:57
PROVIDERS: ATTEND Internal Medicine
DX: I50.42 Chronic combined systolic (congestive) and diastolic (congestive) heart failure (principal)